=== PATIENT | female | born 1945 | race Caucasian/White ===

== ENCOUNTER 2024-11-21 06:16 | Day surgery (SDC) | payer OTHER, SELFPAY | END 2024-11-21 15:55 | disposition home or self-care (01) | LOC: GI 06:16 | PROVIDERS: ATTENDING PHYSICIAN Surgery | DX: C20 Malignant neoplasm of rectum (principal); K62.89 Other specified diseases of anus and rectum; K56.690 Other partial intestinal obstruction; D12.5 Benign neoplasm of sigmoid colon | CPT/HCPCS: 45330; J1610 ==

== ENCOUNTER → 2024-12-05 12:04 | Outpatient (REF) | payer OTHER, MEDICARE, SELFPAY | LOC: MRI 3T 12:04 | PROVIDERS: ATTENDING PHYSICIAN Surgery; FAMILY PHYSICIAN Family Medicine | DX: C20 Malignant neoplasm of rectum (principal) | CPT/HCPCS: 71260; 72197; A9575; Q9967 ==

== ENCOUNTER 2024-12-28 06:20 | Day surgery (SDC) | payer OTHER, SELFPAY ==
[2024-12-26 13:27] VITALS: BMI 21.9
--- NOTE | 2024-12-27 15:23 | PTCARENOTE ---
Abnormal ECG 12/26/24, reviewed by Dr Chiang, no additional intervention requested.
[2024-12-28 12:26] VITALS: BP 123/77; BMI 21.9
[2024-12-28] MEDS: NORMOSOL-R/PLASMALYTE-A 1000 IV (12:44)
[2024-12-28 14:30] VITALS: BP 92/55
[2024-12-28 14:46] VITALS: BP 104/60
[2024-12-28 15:00] VITALS: BP 81/68
[2024-12-28 15:01] VITALS: BP 117/66
== END 2024-12-28 16:00 | disposition home or self-care (01) ==
LOC: SDS 06:20
PROVIDERS: ATTENDING PHYSICIAN Surgery; FAMILY PHYSICIAN Family Medicine
DX: C20 Malignant neoplasm of rectum (principal)
CPT/HCPCS: 36561; 36415; 71045; 76000; 93005; C1788

== ENCOUNTER → 2025-04-09 09:40 | Outpatient (REF) | payer OTHER, SELFPAY | LOC: RAD 09:40 | PROVIDERS: ATTENDING PHYSICIAN Internal Medicine Hematology & Oncology; FAMILY PHYSICIAN Family Medicine | DX: C20 Malignant neoplasm of rectum (principal) | CPT/HCPCS: 71260; 74160; Q9967 ==

== ENCOUNTER → 2025-04-11 11:53 | Outpatient (REF) | payer OTHER, SELFPAY | LOC: MRI 3T 11:53 | PROVIDERS: ATTENDING PHYSICIAN Internal Medicine Hematology & Oncology; FAMILY PHYSICIAN Family Medicine | DX: C20 Malignant neoplasm of rectum (principal) | CPT/HCPCS: 72197; A9575 ==

== ENCOUNTER → 2025-05-07 10:28 | Outpatient (REF) | payer OTHER, SELFPAY | LOC: REG 10:28 | PROVIDERS: ATTENDING PHYSICIAN Internal Medicine Hematology & Oncology; FAMILY PHYSICIAN Family Medicine | DX: C20 Malignant neoplasm of rectum (principal) | CPT/HCPCS: 36415 ==

== ENCOUNTER 2025-05-15 06:16 | Day surgery (SDC) | payer OTHER, SELFPAY ==
--- NOTE | 2025-05-09 14:01 | CM ---
CM was updated by DARYA RN that patient would like to go to rehab post operatively. CM spoke with patient's son who stated that patient lives alone and would not be able to handle the ileostomy post operatively. CM explained placement process.
CM advised patient's son to research SNF's on Medicare. gov. CM advised further that CM taking care of patient will assist with placement options as well.
PLAN: SNF.
== END 2025-05-15 11:31 | disposition home or self-care (01) ==
LOC: GI 06:16
PROVIDERS: ATTENDING PHYSICIAN Surgery
DX: C20 Malignant neoplasm of rectum (principal); K62.89 Other specified diseases of anus and rectum; K56.690 Other partial intestinal obstruction; Z01.818 Encounter for other preprocedural examination
CPT/HCPCS: 45330

== ENCOUNTER 2025-05-16 05:43 | Inpatient (IN) | payer OTHER, SELFPAY ==
[2025-05-07 11:16] LABS: INR 1.02; PT 13.7 Sec (11.4-14.6)
[2025-05-07 11:17] LABS: APTT 28.1 Sec (23.4-35.0)
[2025-05-07 11:18] LABS: Hematocrit 35.6 % (37.0-47.0); Hemoglobin 11.4 g/dL (12.0-16.0); Mean Corp Hgb Conc. 32.0 g/dL (33.0-37.0); Mean Corpuscular Volume 100.3 fL (81.0-99.0); Nucleated Red Blood Cells % 0 %; Platelet Count 194 10^3/uL (130-400); Red Cell Dist. Width 17.2 % (11.5-14.5)
[2025-05-07 11:54] LABS: Glycohemoglobin (HgbA1c) 4.8 % (4.0-5.6)
[2025-05-07 12:05] LABS: ALT (SGPT) 70 U/L (0-35); AST (SGOT) 49 U/L (14-36); Albumin 4.3 g/dl (3.5-5.0); Alkaline Phosphatase 107 U/L (38-126); Blood Urea Nitrogen 10 mg/dl (7-17); Calcium 10.0 mg/dl (8.4-10.2); Carbon Dioxide 26 mmol/L (22-30); Chloride 111 mmol/L (98-107); Glucose 92 mg/dl (70-99); Potassium 4.6 mmol/L (3.5-5.1); Sodium 142 mmol/L (135-145); Total Protein 7.0 g/dl (6.3-8.2); eGFR > 60.00
[2025-05-16] VITALS (16 sets, daily range): BP systolic 1–147; BP diastolic 53–76; BMI 18.4
[2025-05-16] MEDS: NEURONTIN 600 MG PO (06:45)
[2025-05-16] MEDS: TYLENOL 1000 MG PO (06:45)
[2025-05-16] MEDS: NORMOSOL-R/PLASMALYTE-A 1000 IV ×2 (06:48→14:36)
--- NOTE | 2025-05-16 07:00 | PTCARENOTE ---
Mepilex dressing applied to the L forearm wound.
--- NOTE | 2025-05-16 12:46 | W.OR.REC1 ---
Addendum entered and electronically signed by Mandeep Severino MD 05/16/25 14:52:
Specimen #2 is distal anastomotic donut.
Addendum entered and electronically signed by Mandeep Severino MD 05/16/25 14:50:
Correction: ASA II, not III.
Addendum entered and electronically signed by Mandeep Severino MD 05/16/25 14:10:
Patient's son updated via VM.
Original Note:
Rectal Surgery Post Op Note
Immediate Post Op
Primary Surgeon: Brian Severino MD
Assisting Surgeon: Isa Anderson MD, DAVID Ponce
Urologist: Liseth Freitas MD
Pre-op Diagnosis: rectal cancer
Post-op Diagnosis: same
Procedure Performed: 1) robotic low-anterior resection (LAR) with loop ileostomy 2) flexible sigmoidoscopy
Anesthesia Type: general plus local
Specimen / Cultures: rectosigmoid
Estimated Blood Loss: 100 cc
Complications: no immediate
Operative Findings: 1) rectal tumor at 7-8 cm from anal verge/5 cm from anorectal ring with associated distal tattooing 2) no obvious metastatic disease 3) a bit oozey at end leading to giving 1 gram TXA with benefit
Camron drain in pelvis.
Arana, stents, ureteral ICG by Dr. Hernandez. R stent removed at end of case.
Will send to med surg.
Cancer Report
ASA Score: III
Case Status: Elective
Operation: Low anterior resection
Modailty: Robotic
Location of tumor within rectum: Middle
Height of lower edge of tumor from anal verge: 7-8 cm
Mobilization of splenic flexure: No
Level of ligation of inferior mesenteric artery: Superior rectal artery
Level of ligation of inferior mesenteric vein: High
Level of rectal transectiondistal to distal edge of tumor: 4 cm
Type of Reconstruction: Stapled end-end
Anastomotic testing method(s): Rectal air infusion under pelvic fluid (with flexible sigmoidoscopy) and Palpation
Creation of stoma: Ileostomy
En bloc resection: No
Metastectomy: No
Completeness of tumor resection: R0
Interoperative Complications: No
Blood transfusion: No
Total Mesorectal Excision photographed: in pathology
[2025-05-16] MEDS: DILAUDID 0.5 MG IV (13:23)
[2025-05-16 14:05] LABS: Hematocrit 30.8 % (37.0-47.0); Hemoglobin 10.0 g/dL (12.0-16.0); Mean Corp Hgb Conc. 32.5 g/dL (33.0-37.0); Mean Corpuscular Volume 102.7 fL (81.0-99.0); Nucleated Red Blood Cells % 0 %; Platelet Count 204 10^3/uL (130-400); Red Cell Dist. Width 15.9 % (11.5-14.5)
[2025-05-16] MEDS: TORADOL 10 MG IV ×2 (14:06→21:04)
[2025-05-16 14:08] LABS: Blood Urea Nitrogen 14 mg/dl (7-17); Calcium 7.7 mg/dl (8.4-10.2); Carbon Dioxide 22 mmol/L (22-30); Chloride 110 mmol/L (98-107); Estimated Creatinine Clearance 47 ml/min; Glucose 147 mg/dl (70-99); Magnesium 2.1 mg/dl (1.6-2.3); Potassium 3.4 mmol/L (3.5-5.1); Sodium 141 mmol/L (135-145); eGFR > 60.00
[2025-05-16] MEDS: KCL 270 MEQ IV (14:45)
[2025-05-16] MEDS: TYLENOL PO ×2 (15:53→21:00)
--- NOTE | 2025-05-16 16:00 | PTCARENOTE ---
pt admitted to 2S room 2108 @ 1515 from PACU via bed. admission database completed from medical record. pt is drowsy, responds to name, opens eyes and returns to sleep. O2 2L NC maintained. call rowe in reach, safe environment maintained, son at
bedside. assessment completed as documented. will observe.
--- NOTE | 2025-05-16 18:46 | PTCARENOTE ---
@1830, pt waking up, moving around in bed, confused to place and situation. pt re-oriented. bed alarm placed. monitoring continues.
[2025-05-16] MEDS: FLOMAX 0.4 MG PO (21:31)
--- NOTE | 2025-05-16 21:33 | PTCARENOTE ---
2119 pt woke up confused, stated I have to pee. Pt made aware of harrison catheter and ileostomy. Pt reoriented on situation. Pt went back to sleep after verbalizing understanding.
[2025-05-17] VITALS (7 sets, daily range): BP systolic 100–125; BP diastolic 57–66; PULSE 84; BMI 18.4
[2025-05-17] MEDS: TYLENOL PO ×5 (00:44→23:45)
[2025-05-17] MEDS: TORADOL 10 MG IV (01:02)
[2025-05-17] MEDS: NORMOSOL-R/PLASMALYTE-A 1000 IV ×2 (04:07→16:52)
[2025-05-17 05:02] LABS: Hematocrit 25.0 % (37.0-47.0); Hemoglobin 8.2 g/dL (12.0-16.0); Mean Corp Hgb Conc. 32.8 g/dL (33.0-37.0); Mean Corpuscular Volume 102.0 fL (81.0-99.0); Nucleated Red Blood Cells % 0 %; Platelet Count 160 10^3/uL (130-400); Red Cell Dist. Width 15.7 % (11.5-14.5)
[2025-05-17 05:26] LABS: Blood Urea Nitrogen 17 mg/dl (7-17); Calcium 8.0 mg/dl (8.4-10.2); Carbon Dioxide 24 mmol/L (22-30); Chloride 111 mmol/L (98-107); Estimated Creatinine Clearance 33 ml/min; Glucose 88 mg/dl (70-99); Magnesium 2.3 mg/dl (1.6-2.3); Potassium 4.3 mmol/L (3.5-5.1); Sodium 139 mmol/L (135-145); eGFR 56.60
[2025-05-17] MEDS: ARMOUR THYROID 30 MG PO (05:55)
[2025-05-17] MEDS: TYLENOL 650 MG PO ×3 (08:51→20:04)
[2025-05-17] MEDS: PROTONIX 40 MG PO (08:51)
[2025-05-17] MEDS: TORADOL IV (09:44)
--- NOTE | 2025-05-17 10:39 | CM ---
Addendum entered by Chandrika Crawley 05/17/25 15:38:
Therapy assessment recomendation is for SNF. Per patient family requests for referrals to [facility], [facility] and [facility]. Referrals sent via all scripts.
Addendum entered by Chandrika Crawley 05/17/25 10:46:
CM sent tt to physician requesting pt/ot assessment when medically appropriate
Original Note:
Patient seen at bedside on . Patient lives alone in an apartment with no steps to enter. Patient stated she has a walker, and a cane at home. Patient PCP is Dr. Harris and she uses the [facility]. Patient would like to go home but
understands that she will need rehab for a period of time. Patient waiting for therapy to clarify needed level of care. CM will review with her options for SNF referrals and supports for home if needed. CM will continue to follow for discharge
planning needs.
Plan;home with VN vs SNF; pending therapy assessment; SNF options
--- NOTE | 2025-05-17 11:00 | WOUNDNOTE ---
[place] RN note: Patient s/p ostomy surgery
See H&P for complete history.
PMH: Colon cancer.
Ostomy location and type: RUQ ileostomy, stoma pink and budded, bridge intact.
Instructed patient ostomy pouch emptying, had patient open and close clean pouch. Emptied patient's appliance with her observing. Plan to do teaching session with patient and Son or daughter in law next Tuesday or Tuesday. Family at bedside visiting
and made aware, will coordinate to see who can come in for appliance change. Confirmed with patient and family can send secure start box to patient's home. Patient Expressed that she is upset and not sure if she can handle this. Support and
encouragement given.
[place] wafer # [id number] [place] pouch # [id number] No leakage at this time.
Ostomy supplies ordered from [facility] and placed at bedside.
Note to case management: VN services recommended for ostomy teaching.
Nursing care plan updated, will follow as needed.
--- NOTE | 2025-05-17 12:28 | W.PN.CRS1 ---
Addendum entered and electronically signed by Mandeep Severino MD 05/17/25 14:01:
Of note, patient's BMI of 18.2 makes her underweight.
Addendum entered and electronically signed by Mandeep Severino MD 05/17/25 14:00:
Of note, drop in Hg is due to acute blood loss anemia coupled with hemodilution.
Original Note:
Today's Communication / Plan
-
Clears.
OOB.
Recheck Hg. Held Toradol.
Assessment/Plan
-
POD 1.
1. trial clears.
2. Hg drifted to 8.2. ?hemodilution. Will recheck at 1 pm. Hold Toradol for now.
3. OOB/PT/OT.
4. remaining stent removed. Continue harrison until tomorrow.
5. continue other measures.
Subjective Data
Procedure
Robotic LAR with ileostomy 05/16/25
Subjective Data
Date of Service: May 17, 2025
Pain control reasonable.
Thirsty.
Objective Data
-
Vital Signs
Temp Pulse Resp BP Pulse Ox
98.6 F 85 16 116/66 95
05/17/25 11:07 05/17/25 11:07 05/17/25 11:07 05/17/25 11:07 05/17/25 11:07
Intake & Output
05/16/25 05/17/25 05/18/25
06:59 06:59 06:59
Intake Total 1560 / 1560 692 / 692
Output Total 626 / 626
Balance 934 / 934 692 / 692
Intake:
Oral fluids 692 / 692
IV fluids (Total) 1560 / 1560
Normosal 600 / 600
Output:
Liquid stool amount /
Ileostomy /
Drain Output (Total)
Right Abdomen Elia-Palacios
Urine, Harrison 500 / 500
Lab Results
05/17/25 04:20
Physical Exam
-
General: No Acute Distress
Chest: Clear
Cardiovascular: Regular Rate & Rhythm
Abdomen: Non Distended, Tender (mild incisional) and Other (stoma viable with some bilious output; BETTE with some sanguinous output (low volume))
Extremities: No Edema
Incision: Clear, Dry, Intact and No Skin Erythema
[2025-05-17 13:10] LABS: Hematocrit 24.7 % (37.0-47.0)
--- NOTE | 2025-05-17 13:41 | PN.CDI ---
CDI
- -
CDI:
Physician Documentation Request
Admit Date: 05/16/25 05:43
Dear Doctor Maycol,
Please review the following and provide your response in the progress notes.
Clinical Indicators:
Outfitter Cabin, 05/17
#Initial assessment due to BMI 18.4.
#...states that she has gradually lost weight over time but was unable to provide details.
#Current BW: (05/16) 104 lbs 0.931 oz BMI: 18.4 (underweight).
#...Weight history (12/26/24) 115 lbs. This is a 9.6% BW loss over 5 months.
Based on the above and your clinical assessment, please provide an associated diagnosis related to the BMI:
BMI 18.4, underweight
Other (please specify)
BMI < or = to 19
Underweight
Weight Loss
Cachectic
Anorexia
Use of terms such as suspected, likely, concern for, or probable (associated with a specific diagnosis that is being evaluated, monitored, or treated as if it exists) are acceptable and can be coded in the inpatient setting, when documented at the
time of discharge.
Thank you,
Calista Archer RN BSN CCDS
CDI Specialist
Please contact via tiger text
Please use your independent medical judgment in providing your response.
--- NOTE | 2025-05-17 13:46 | PN.CDI ---
CDI
- -
CDI:
Physician Documentation Request
Admit Date: 05/16/25 05:43
Dear Doctor Maycol,
Please review the following and provide your response in the progress notes.
Clinical Indicators:
Immediate Post Op, 05/16
#Pre-op Diagnosis: rectal cancer
#Procedure Performed: 1) robotic low-anterior resection (LAR) with loop ileostomy
#...2) flexible sigmoidoscopy
#Specimen / Cultures: rectosigmoid
#Estimated Blood Loss: 100 cc
PN, 05/17
#POD 1.
#...2. Hg drifted to 8.2. ?hemodilution. Will recheck at 1 pm.
Laboratory Tests
05/07/25 05/16/25 05/17/25
10:58 13:46 04:20
Hgb 11.4 L 10.0 L 8.2 L
Based on the above and your clinical assessment, please clarify, the most likely condition/diagnosis evaluated, monitored and/or treated?
Acute blood loss anemia with baseline chronic anemia (Specify type)
Anemia of chronic disease - indicate if neoplastic disease, CKD or other
Chronic iron deficiency anemia due to blood loss
Other(please specify)
Use of terms such as suspected, likely, concern for, or probable (associated with a specific diagnosis that is being evaluated, monitored, or treated as if it exists) are acceptable and can be coded in the inpatient setting, when documented at the
time of discharge.
Thank you,
Calista Archer RN BSN CCDS
CDI Specialist
Please contact via tiger text
Please use your independent medical judgment in providing your response.
--- NOTE | 2025-05-17 13:51 | W.PN.UPDATE ---
Update Note
Progress Note Update
Hematocrit this afternoon 24.7 which is virtually the same as the earlier drawl result of 25.0. I do not suspect active bleeding. For now we will continue to hold the Toradol, however will order prophylactic dose subcu Lovenox for this evening.
Labs will be rechecked in the morning.
[2025-05-17] MEDS: LOVENOX 30 MG SC (18:32)
[2025-05-17] MEDS: FLOMAX 0.4 MG PO (21:07)
[2025-05-18] MEDS: TYLENOL 650 MG PO ×2 (03:57→08:40)
[2025-05-18] MEDS: ARMOUR THYROID 30 MG PO (05:23)
[2025-05-18 06:00] VITALS: BMI 19.5
[2025-05-18 06:17] LABS: Hematocrit 29.2 % (37.0-47.0); Hemoglobin 9.6 g/dL (12.0-16.0); Mean Corp Hgb Conc. 32.9 g/dL (33.0-37.0); Mean Corpuscular Volume 102.8 fL (81.0-99.0); Nucleated Red Blood Cells % 0 %; Platelet Count 207 10^3/uL (130-400); Red Cell Dist. Width 15.5 % (11.5-14.5)
[2025-05-18 06:35] LABS: Blood Urea Nitrogen 16 mg/dl (7-17); Calcium 8.3 mg/dl (8.4-10.2); Carbon Dioxide 26 mmol/L (22-30); Chloride 108 mmol/L (98-107); Estimated Creatinine Clearance 25 ml/min; Glucose 100 mg/dl (70-99); Potassium 4.2 mmol/L (3.5-5.1); Sodium 137 mmol/L (135-145); eGFR 41.31
[2025-05-18 07:05] VITALS: BP 124/79
[2025-05-18] MEDS: NSS 1000 IV ×3 (08:39→20:24)
[2025-05-18] MEDS: PROTONIX 40 MG PO (08:40)
[2025-05-18] MEDS: ZOFRAN 4 MG IV ×2 (10:44→16:48)
--- NOTE | 2025-05-18 11:36 | W.PN.CRS1 ---
Today's Communication / Plan
-
renal US
Fld
Assessment/Plan
-
79 yo female with a h/o rectal tumor now POD #2 Robotic low anterior resection (LAR) with loop ileostomy. Flexible sigmoidoscopy. Ureteroscopy for stent placements to identify ureters (stents now removed) (TXA given at end of case for oozing)
AFVSS
Harrison removed early this am for voiding trial
BETTE dislodged, removed at bedside, prior to removed body fluid cr sent and equal to serum
Stoma productive of stool/flatus
Acute blood loss anemia present from intraoperative losses and hemodilution. H/h remains stable. Do no suspect active bleeding.
Rise in Cr with HIEN noted
Plan:
Ok for FLD
Harrison removed early this am, follow closely for retention
Check renal/bladder US
Consult placed to nephrology
IVF as per nephrology
Analgesics/Antiemetics prn. No NSAIDS give rise in Cr with anemia
Lovenox and SCDs for VTE ppx
Subjective Data
Procedure
Robotic LAR with ileostomy 05/16/25
Subjective Data
Date of Service: May 18, 2025
Pt seen and examined at bedside with Dr. Severino. Denies n/v. OOB to chair. Tolerating clears. Pain well managed.
Objective Data
-
Vital Signs
Temp Pulse Resp BP Pulse Ox
98 F 91 14 124/79 95
05/18/25 07:05 05/18/25 07:05 05/18/25 07:05 05/18/25 07:05 05/18/25 07:05
Intake & Output
05/17/25 05/18/25 05/19/25
06:59 06:59 06:59
Intake Total 1560 / 1560 1812 / 1812
Output Total 626 / 626 1400 / 1400 430 / 430
Balance 934 / 934 412 / 412 -430 / -430
Intake:
Oral fluids 932 / 932
IV fluids (Total) 1560 / 1560 880 / 880
Normosal 600 / 600
Output:
Liquid stool amount 1025 / 1025 400 / 400
Ileostomy 1025 / 1025 400 / 400
Drain Output (Total)
Right Abdomen Elia-Palacios
Urine, Harrison 500 / 500 350 / 350
Lab Results
05/18/25 05:44
05/18/25 05:44
Physical Exam
-
General: No Acute Distress
Chest: Clear
Cardiovascular: Regular Rate & Rhythm
Abdomen: Non Distended, Tender (mild incisional) and Other (stoma viable with stool/flatus, silicone harrison utilized as bridge in place; BETTE with SS outputs, leaking and slightly dislodged (removed))
Extremities: No Edema
Incision: Clear, Dry, Intact and No Skin Erythema
[2025-05-18 12:07] VITALS: BP 141/69; PULSE 73; O2SAT 97
[2025-05-18] MEDS: TYLENOL PO ×2 (12:30→16:45)
--- NOTE | 2025-05-18 13:28 | W.CON.NEPH ---
Consultation
-
Date/Time Consultation Requested: 05/18/25 0811
Date/Time Consultation Performed: 05/18/25 1310
Requesting Provider: timo Hodge
Performing Provider: Sherice Griffith
Reason for Consultation: HIEN
Medical History
-
Chief Complaint: elective LAR with loop ileostomy
History of Present Illness:
79-year-old female with a history of hypothyroidism on [place] Thyroid, spinal stenosis, celiac disease, GERD, bipolar, depression, anxiety, MVP, hyperlipidemia, osteoporosis who was diagnosed with the rectal cancer several months ago and she
received neoadjuvant therapy for 3 months which help to shrink the tumor and now she electively admitted for lower anterior resection and loop ileostomy which she successfully underwent on 05/16/25. Her creatinine presurgery was 0.6, since the
surgery on the creatinine increased up to 1 yesterday and today at 1.3 hence nephrology asked to evaluate. Patient is having liquid stool output from ileostomy that negative balance of 1 L today. She reports of no nausea or vomiting. Has
been drinking well, her diet being advanced by surgery. She complains about mild dizziness. No chest pain or shortness of breath. Abdominal pain in fair control. She was getting Toradol for pain control which has been discontinued now. She
continued on IV fluid replacement. She offers no fever or coughing. No edema.
Past Medical History
Rectal cancer stage III
Hypothyroidism
Celiac disease
Osteoporosis
MVP
GERD
Anxiety/depression
Hyperlipidemia
Spelled stenosis
Past Surgical History: Other ( total abdominal hysterectomy, BSO. Cataract. Hip surgery in 2021, nose repair in 1982. Removal of thyroid in 1982)
Social History
Tobacco: Non-Smoker
Alcohol: None
Living: With Family
Family History
Family History: Not Pertinent
Allergies / Home Medications
Allergy/AdvReac Type Severity Reaction Status Date / Time
adhesive Allergy Mild Skin Tears Verified 05/16/25 06:34
gluten Allergy stomach Verified 05/16/25 06:34
issues
latex Allergy Unknown Verified 05/16/25 06:34
�Medication �Instructions �Recorded �Confirmed �Type
thyroid (pork) 30 mg tablet 30 mg PO DAILY Thyroid 12/27/24 05/16/25 History
([place] Thyroid)
metronidazole 500 mg tablet 500 mg PO . DIRECTED pre op 05/09/25 05/16/25 History
neomycin 500 mg tablet 1 g PO . DIRECTED pre op 05/09/25 05/16/25 History
sodium sul 1.479 gram-potas ch 0 tab PO . DIRECTED pre op 05/09/25 05/16/25 History
0.188 gram-magnes sul 0.225 gram
tablet (Sutab)
Review of Systems
-
All other systems: Negative unless noted
Physical Exam
Vital Signs
Vital Signs
Temp Pulse Resp BP Pulse Ox
98 F 91 14 124/79 95
05/18/25 07:05 05/18/25 07:05 05/18/25 07:05 05/18/25 07:05 05/18/25 07:05
Lab Results
WBC 9.0 10^3/uL (4.8-10.8) 05/18/25 05:44
RBC 2.84 10^6/uL (4.20-5.40) L 05/18/25 05:44
Hgb 9.6 g/dL (12.0-16.0) L 05/18/25 05:44
Hct 29.2 % (37.0-47.0) L 05/18/25 05:44
Plt Count 207 10^3/uL (130-400) D 05/18/25 05:44
Sodium 137 mmol/L (135-145) 05/18/25 05:44
Potassium 4.2 mmol/L (3.5-5.1) 05/18/25 05:44
Chloride 108 mmol/L (98-107) H 05/18/25 05:44
Carbon Dioxide 26 mmol/L (22-30) 05/18/25 05:44
BUN 16 mg/dl (7-17) 05/18/25 05:44
Creatinine 1.3 mg/dL (0.6-1.0) H 05/18/25 05:44
eGFR 41.31 05/18/25 05:44
Glucose 100 mg/dl (70-99) H 05/18/25 05:44
Calcium 8.3 mg/dl (8.4-10.2) L 05/18/25 05:44
Albumin 4.3 g/dl (3.5-5.0) 05/07/25 10:58
Physical Exam
General: Awake, Alert, Oriented, AOx3, No Distress and Nontoxic
HEENT: Anicteric, Conjunctivae Clear and Facial Symmetry
Respiratory: Clear, Normal Excursion and Nonlabored Respirations
Cardiac: S1/S2 and Regular Rate/Rhythm
Abdomen: Soft, Nondistended and Other (mild TTP post op, ileostomy looks clean, as bile color liquid on ostomy bag)
Musculoskeletal: No Cyanosis and No Edema
Skin: No Rash
Neuro: Nonfocal/Grossly Intact
Psych: Mood/afflect pleasant, Insight/judgement good and Appropriate
Data Reviewed
-
Labs: Labs Reviewed by me, Discussed with Patient and Discussed with Family
Assessment/Plan
-
IMP:
Robotic low anterior resection (LAR) with loop ileostomy 05/16
Rectal cancer stage III completed neoadjuvant therapy
HIEN-baseline creatinine 0.6
Right chest port
hypothyroidism
Anxiety, depression
Bipolar
Osteoporosis
plan:
A/w electively for rectal surg now pOD 2
HIEN-suspect prerenal with significant output from ileostomy and use of NSAIDs
Check baseline urine analysis, bladder scan now that she is off the Arana catheter
Avoid nephrotoxins, NSAIDs have discontinued
Will give her a bolus of 1 L normal saline and increase the rate to 1 25 cc per hour
Monitor urine output, check labs in the morning
Try to match IVF with her GI output
Blood pressures are stable without significant hypotension
Mild hypercalcemia, need abdomen for correction
Preoperative ultrasound noted-mild right renal collecting system dilation, right ureteral jets not seen
His creatinine continued to worse likely need to repeat imaging
Discussed with the patient and the son at bedside
Check labs in the morning
[2025-05-18 15:05] VITALS: BP 152/77
[2025-05-18 16:48] LABS: Albumin 2.8 g/dl (3.5-5.0)
--- NOTE | 2025-05-18 18:47 | PTCARENOTE ---
Patient had no urine output during the entire shift. Last bladder scan was 353 ml at 1820. Patient also c/o nausea at that time. Zofran given IV at 1645. Patient vomited about 30 ml of dark brown emesis. Dr. Severino made aware and will come to see
patient.
--- NOTE | 2025-05-18 19:14 | W.PN.UPDATE ---
Addendum entered and electronically signed by Mandeep Severino MD 05/18/25 19:36:
Updated the patient's son and next of kin, Alonso, via voicemail.
Original Note:
Update Note
Progress Note Update
Earlier in the day, received word from nursing that the patient has not been urinating since Arana removal. Also her creatinine bumped up a little bit this morning leading to nephrology consultation. Nephrology input noted and appreciated;
receiving bolus now. BETTE creatinine was consistent with serum at 1.3. Renal ultrasound results revealed mild dilatation of right renal collecting system and no right ureteral jet identified. Also, given the pelvic dissection with her operation,
she is at risk for urinary retention. I did correspond earlier with Dr. Jesus Manuel Rordigues of urology via phone who will see her in consultation in the a.m. He recommended holding off on Arana replacement at that point in time.
More recently, I received word from nursing that the patient had a bout of emesis of greenish-brown material and has been nauseated today. I did evaluate her at the bedside recently and she is mildly distended. Normal incisional tenderness.
Serosanguineous fluid from the prior drain site is noted. Stoma is viable with no gas but a bit of bilious output in the bag. She admitted to further nausea.
Given the above, I am concerned about possible postoperative ileus as well as dehydration. I discussed situation with the patient and with nursing. Will replace the Arana. Will have nursing place an NG and confirm placement with auscultation.
Will obtain abdominal plain films in the a.m.
[2025-05-18] MEDS: LOVENOX 30 MG SC (19:17)
[2025-05-18 19:55] LABS: Urine Character Clear (Clear)
[2025-05-18 20:06] LABS: Urine Red Blood Cell 0-2 /HPF (0-2); Urine White Cell 30-40 /HPF (0-5)
[2025-05-18] MEDS: OFIRMEV 100 IV (20:25)
[2025-05-18] MEDS: CHLORASEPTIC/SORE THROAT SPRAY 1 SPRAY PO (20:34)
[2025-05-18 23:00] VITALS: BP 153/81
[2025-05-19] MEDS: OFIRMEV 100 IV ×4 (01:23→19:43)
[2025-05-19] MEDS: NSS 1000 IV ×3 (04:44→19:46)
[2025-05-19 06:00] VITALS: BMI 20.1
[2025-05-19 06:17] LABS: Hematocrit 27.6 % (37.0-47.0); Hemoglobin 9.0 g/dL (12.0-16.0); Mean Corp Hgb Conc. 32.6 g/dL (33.0-37.0); Mean Corpuscular Volume 100.7 fL (81.0-99.0); Platelet Count 214 10^3/uL (130-400); Red Cell Dist. Width 15.2 % (11.5-14.5)
[2025-05-19 06:35] LABS: Blood Urea Nitrogen 21 mg/dl (7-17); Calcium 8.0 mg/dl (8.4-10.2); Carbon Dioxide 25 mmol/L (22-30); Chloride 113 mmol/L (98-107); Estimated Creatinine Clearance 32 ml/min; Glucose 103 mg/dl (70-99); Potassium 4.0 mmol/L (3.5-5.1); Sodium 138 mmol/L (135-145); eGFR 50.48
[2025-05-19 07:10] VITALS: BP 176/90
[2025-05-19] MEDS: NSS (PRESERVATIVE FREE) 10 ML IV (08:08)
[2025-05-19] MEDS: PROTONIX IV 40 MG IV (08:08)
[2025-05-19 08:24] VITALS: BP 144/82
--- NOTE | 2025-05-19 08:28 | W.PN.URO.CBU ---
Today's Communication / Plan
-
Trend creatinine
No surgical intervention needed at this time
Assessment / Plan
-
79F s/p LAR and ileostomy 05/16/25 with preop stents placed
Some HIEN after removal of stent and harrison
Renal US showing R renal fullness without ureteral jet
- Suspect patient's HIEN is mostly pre-renal
- Mild renal pelvis fullness is low suspicion for significant obstructive uropathy. Some possible ureteral spasm from the stent but likely to resolve on its own
- Creatinine improved 05/19 with better fluid balance and harrison draining light yellow urine
- Continue to trend creat daily
- Can remove harrison when HIEN resolved. No urinary retention on US
- F/U nephrology recommendations
Diagnosis
-
Date of Service: May 19, 2025
-
Patient Diagnosis:
HIEN
Post Op Day: s/p LAR with loop ileostomy, bilateral ureteral stents preop on 05/16/25
Subjective
-
No events
sore throat
No flank pain
Objective
-
Vital Signs
Temp Pulse Resp BP Pulse Ox
98.3 F 89 14 144/82 96
05/19/25 07:10 05/19/25 08:24 05/19/25 07:10 05/19/25 08:24 05/19/25 08:15
Intake and Output
05/18/25 05/19/25 05/20/25
06:59 06:59 06:59
Intake Total 1812 / 1812 4077 / 4077
Output Total 1400 / 1400 2595 / 2595
Balance 412 / 412 1482 / 1482
Intake:
Oral fluids 932 / 932 237 / 237
IV fluids (Total) 880 / 880 3750 / 3750
Amount instilled into GI Tube ( 90 / 90
Total)
[place] Sump
Output:
Liquid stool amount 5 / 1025 975 / 975
Ileostomy 1024 / 5 975 / 975
Drain Output (Total) 170 / 170
Right Abdomen Elia-Palacios 170 / 170
Gastrointestinal tube output ( 1099
Total)
[place] Sump 1099
Urine, Harrison 350 / 350
Urine, Voided 350 / 350
Laboratory Results
05/19/25 05:42
05/19/25 05:42
Physical Exam
-
General - well developed, well nourished, no acute distress
Chest - clear bilaterally
NGT in place, clear drainage
Abdomen - soft, non-tender, ileostomy
Harrison in place, clear urine
--- NOTE | 2025-05-19 11:32 | W.PN.CRS1 ---
Addendum entered and electronically signed by Mandeep Severino MD 05/19/25 12:57:
I saw and examined the patient.
The METAL MINE INSPECTOR's note was reviewed and I agree with the note.
Comment:
Seen earlier with METAL MINE INSPECTOR.
Minimal nausea. Pain control reasonable.
Afebrile with stable vital signs. WBC 7.2. Hemoglobin 9.0. BUN and creatinine 21 and 1.1.
NG tube with dark drainage/1.1 L in 24 hours. Urine output 350 cc overnight.
Abdomen moderately distended. Incisions look good. Stoma viable with bilious output.
Harrison in place.
Plain films this a.m. shows looping of the NG tube on itself in the esophagus as well as mild small bowel distention. This is consistent with partial small bowel obstruction versus postop ileus. NG tube adjusted and repeat films show tip of the
tube to be in the stomach now.
Continue NG tube and Harrison.
Watch urine output.
Appreciate help from consultants.
Son Alonso updated on the phone.
Original Note:
Today's Communication / Plan
-
npo/ngt/harrison
Assessment/Plan
-
79 yo female with a h/o rectal tumor now POD 3 Robotic low anterior resection (LAR) with loop ileostomy. Flexible sigmoidoscopy. Ureteroscopy for stent placements to identify ureters (stents now removed) (TXA given at end of case for oozing)
AFVSS
Unable to void with voiding trial on 05/18, harrison replaced for acute urinary retention. Low urine outputs (425ml over the last 24hours)
NGT placed last night for ongoing nausea, high outputs but does appeared coiled in the esophagus on XR
Obstruction series this am with mild sb dilatation likely secondary to ileus. Stoma without output overnight but now productive of liquid green stool/flatus
Acute blood loss anemia present from intraoperative losses and hemodilution. H/h remains stable. Do no suspect active bleeding.
HIEN present, likely prerenal. Appreciate nephrology following.
Renal US from 05/18 with mild right renal collecting system fullness/unable to visualize jet. Appreciate urology eval.
Plan:
NPO with ice chips
NGT repositioned at bedside, obtain XR to confirm placement
C/W harrison
Trend labs
IVF as per nephrology
Analgesics/Antiemetics prn. No NSAIDS give rise in Cr with anemia
Lovenox and SCDs for VTE ppx
Subjective Data
Procedure
Robotic LAR with ileostomy 05/16/25
Subjective Data
Date of Service: May 19, 2025
Pt seen and examined at bedside with Dr Severino. Some nausea persists. Pain managed well at this point. Feeling quite tired.
Objective Data
-
Vital Signs
Temp Pulse Resp BP Pulse Ox
98.3 F 89 14 144/82 96
05/19/25 07:10 05/19/25 08:24 05/19/25 07:10 05/19/25 08:24 05/19/25 08:15
Intake & Output
05/18/25 05/19/25 05/20/25
06:59 06:59 06:59
Intake Total 1812 / 1812 4077 / 4077 130 / 130
Output Total 1400 / 1400 2595 / 2595 75 / 75
Balance 412 / 412 1482 / 1482 55 / 55
Intake:
Oral fluids 932 / 932 237 / 237
IV fluids (Total) 880 / 880 3750 / 3750
IV piggybacks 100 / 100
Amount instilled into GI Tube ( 90 / 30 / 30
Total)
[place] Sump 90 / 90 30 / 30
Output:
Liquid stool amount 1025 / 1025 975 / 975
Ileostomy 1025 / 1025 975 / 975
Drain Output (Total) 170 / 170
Right Abdomen Elia-Palacios 170 / 170
Gastrointestinal tube output ( 1099
Total)
[place] Sump 1099 / 1099
Urine, Harrison 350 / 350 75 / 75
Urine, Voided 350 / 350
Lab Results
05/19/25 05:42
05/19/25 05:42
Physical Exam
-
General: No Acute Distress
Chest: Clear
Cardiovascular: Regular Rate & Rhythm
Abdomen: Soft, Distended (mild), Tender (mild incisional) and Other (stoma viable with green stool/flatus, silicone harrison utilized as bridge in place. NGT with bilious outputs. Harrison with low clear, yellow outputs)
Extremities: No Edema
Incision: Clear, Dry, Intact and No Skin Erythema
--- NOTE | 2025-05-19 12:16 | W.PN.NEPH.PH ---
Today's Communication / Plan
-
cont IVF to match GI out put
Assessment/Plan
-
IMP:
Robotic low anterior resection (LAR) with loop ileostomy 05/16
Rectal cancer stage III completed neoadjuvant therapy
HIEN-baseline creatinine 0.6
Right chest port
hypothyroidism
Anxiety, depression
Bipolar
Osteoporosis
plan:
A/w electively for rectal surg now pOD 3
HIEN-suspect prerenal with significant output from ileostomy and use of NSAIDs
UA 4+bld normal CK, pyuria. Fena low 0.2
oliguric with harrison(reinserted today)
Postoperative ultrasound noted-mild right renal collecting system dilation, right ureteral jets not seen
saw pt and with improving cr no interventions planned, drain fluid cr also 1.3 so likely no leak
Try to match IVF with her GI output
Blood pressures are stable without hypotension
Mild hypercalcemia, corrected for alb is normal
pt is NPO for ileus vs PSBO with NGT
Discussed with the patient and nursing
Check labs in the morning
-
-
Date of Service: May 19, 2025
CC / HPI / ROS
-
Chief Complaint:
HIEN
History of Present Illness:
cr down to 1.1
Bp stable, oliguric, harrison placed today
drain removed, NGT draining
ostomy liquid bile
Review of Systems:
no cp or sob
no abd pain
Labs
-
Labs:
WBC 7.2 10^3/uL (4.8-10.8) 05/19/25 05:42
RBC 2.74 10^6/uL (4.20-5.40) L 05/19/25 05:42
Hgb 9.0 g/dL (12.0-16.0) L 05/19/25 05:42
Hct 27.6 % (37.0-47.0) L 05/19/25 05:42
Plt Count 214 10^3/uL (130-400) 05/19/25 05:42
Sodium 138 mmol/L (135-145) 05/19/25 05:42
Potassium 4.0 mmol/L (3.5-5.1) 05/19/25 05:42
Chloride 113 mmol/L (98-107) H 05/19/25 05:42
Carbon Dioxide 25 mmol/L (22-30) 05/19/25 05:42
BUN 21 mg/dl (7-17) H 05/19/25 05:42
Creatinine 1.1 mg/dL (0.6-1.0) H 05/19/25 05:42
eGFR 50.48 05/19/25 05:42
Glucose 103 mg/dl (70-99) H 05/19/25 05:42
Calcium 8.0 mg/dl (8.4-10.2) L 05/19/25 05:42
Albumin 2.8 g/dl (3.5-5.0) L 05/18/25 05:44
Physical Exam
-
Vital Signs:
Vital Signs
Temp Pulse Resp BP Pulse Ox
98.3 F 89 14 144/82 96
05/19/25 07:10 05/19/25 08:24 05/19/25 07:10 05/19/25 08:24 05/19/25 08:15
Cardiovascular:: Regular rate and rhythm
Respiratory:: Bilateral: CTA
Lung Excursion:: Normal
Abdomen:: Nontender and Soft (ileostomy noted )
Extremity Edema:: None: Bilateral:
Harrison Catheter: Yes
[2025-05-19 15:00] VITALS: BP 129/71
[2025-05-19 15:17] VITALS: BP 129/71
[2025-05-19] MEDS: LEVOTHROID 30 MCG IV (17:26)
[2025-05-19] MEDS: LOVENOX 30 MG SC (17:28)
[2025-05-19 23:15] VITALS: BP 128/77
[2025-05-20] VITALS (7 sets, daily range): BP systolic 136–165; BP diastolic 72–86; PULSE 86; BMI 20.1
[2025-05-20] MEDS: OFIRMEV 100 IV ×3 (02:02→14:31)
[2025-05-20 05:32] LABS: Hematocrit 23.2 % (37.0-47.0); Hemoglobin 7.4 g/dL (12.0-16.0); Mean Corp Hgb Conc. 31.9 g/dL (33.0-37.0); Mean Corpuscular Volume 102.7 fL (81.0-99.0); Platelet Count 163 10^3/uL (130-400); Red Cell Dist. Width 14.6 % (11.5-14.5)
[2025-05-20 05:51] LABS: Blood Urea Nitrogen 15 mg/dl (7-17); Calcium 8.0 mg/dl (8.4-10.2); Carbon Dioxide 19 mmol/L (22-30); Chloride 117 mmol/L (98-107); Estimated Creatinine Clearance 36 ml/min; Glucose 76 mg/dl (70-99); Potassium 3.7 mmol/L (3.5-5.1); Sodium 138 mmol/L (135-145); eGFR 56.60
[2025-05-20] MEDS: NSS 1000 IV ×2 (06:00→21:31)
[2025-05-20 06:35] LABS: Hematocrit 23.7 % (37.0-47.0); Hemoglobin 7.6 g/dL (12.0-16.0); Mean Corp Hgb Conc. 32.1 g/dL (33.0-37.0); Mean Corpuscular Volume 102.6 fL (81.0-99.0); Platelet Count 161 10^3/uL (130-400); Red Cell Dist. Width 14.7 % (11.5-14.5)
--- NOTE | 2025-05-20 07:51 | W.PN.URO.CBU ---
Today's Communication / Plan
-
Continued improvement in HIEN
No intervention needed
Can remove harrison per primary team when appropriate
Assessment / Plan
-
79F s/p LAR and ileostomy 05/16/25 with preop stents placed
Some HIEN after removal of stent and harrison
Renal US showing R renal fullness without ureteral jet
- Suspect patient's HIEN is mostly pre-renal
- Mild renal pelvis fullness is low suspicion for significant obstructive uropathy. Some possible ureteral spasm from the stent but likely to resolve on its own
- Creatinine improved 05/19 and 05/20 with better fluid balance and harrison draining light yellow urine
- Can remove harrison per primary team when appropriate. No urinary retention on US
Diagnosis
-
Date of Service: May 20, 2025
-
Patient Diagnosis:
HIEN
Post Op Day: s/p LAR with loop ileostomy, bilateral ureteral stents preop on 05/16/25
Subjective
-
No flank pain
Objective
-
Vital Signs
Temp Pulse Resp BP Pulse Ox
97.7 F 88 16 128/77 97
05/19/25 23:15 05/19/25 23:15 05/19/25 23:15 05/19/25 23:15 05/19/25 23:15
Intake and Output
05/19/25 05/20/25 05/21/25
06:59 06:59 06:59
Intake Total 4077 / 4077 3550 / 3550
Output Total 2595 / 2595 2160 / 2160 150 / 150
Balance 1482 / 1482 1390 / 1390 -150 / -150
Intake:
Oral fluids 237 / 237
IV fluids (Total) 3750 / 3750 2940 / 2940
IV piggybacks 400 / 400
Amount instilled into GI Tube ( 90 / 210 /
Total)
[place] Sump 210 /
Output:
Liquid stool amount 975 / 975 1100 / 1100 150 / 150
Ileostomy 97 / 5 1099 / 1099 150 / 150
Drain Output (Total) 170 / 170
Right Abdomen Elia-Palacios 170 / 170
Gastrointestinal tube output ( 1099 410 / 410
Total)
[place] Sump 1099 410 / 410
Urine, Harrison 650 / 650
Urine, Voided 350 / 350
Laboratory Results
05/20/25 06:27
05/20/25 05:05
Physical Exam
-
General - well developed, well nourished, no acute distress
Chest - clear
Harrison clear urine
[2025-05-20] MEDS: NSS (PRESERVATIVE FREE) 10 ML IV (08:35)
[2025-05-20] MEDS: PROTONIX IV 40 MG IV (08:35)
[2025-05-20] MEDS: CHLORASEPTIC/SORE THROAT SPRAY 2 SPRAY PO (08:39)
--- NOTE | 2025-05-20 10:42 | W.PN.NEPH.PH ---
Today's Communication / Plan
-
IV fluids continue
Assessment/Plan
-
IMP:
Robotic low anterior resection (LAR) with loop ileostomy 05/16
Rectal cancer stage III completed neoadjuvant therapy
HIEN-baseline creatinine 0.6
Right chest port
hypothyroidism
Anxiety, depression
Bipolar
Osteoporosis
plan:
A/w electively for rectal surg status post ureteral stent interop
HIEN-suspect prerenal with significant output from ileostomy and use of NSAIDs
Postoperative ultrasound noted-mild right renal collecting system dilation= no further intervention per GI
pt is NPO for ileus vs PSBO with NGT
Creatinine improving with IV fluids.
Continue fluids for now
-
-
Date of Service: May 20, 2025
CC / HPI / ROS
-
Chief Complaint:
HIEN
History of Present Illness:
cr down to 1.1
Bp stable, oliguric,
drain removed, NGT draining
ostomy liquid bile
Review of Systems:
no cp or sob
no abd pain
Labs
-
Labs:
WBC 5.2 10^3/uL (4.8-10.8) 05/20/25 06:27
RBC 2.31 10^6/uL (4.20-5.40) L 05/20/25 06:27
Hgb 7.6 g/dL (12.0-16.0) L 05/20/25 06:27
Hct 23.7 % (37.0-47.0) L 05/20/25 06:27
Plt Count 161 10^3/uL (130-400) 05/20/25 06:27
Sodium 138 mmol/L (135-145) 05/20/25 05:05
Potassium 3.7 mmol/L (3.5-5.1) 05/20/25 05:05
Chloride 117 mmol/L (98-107) H 05/20/25 05:05
Carbon Dioxide 19 mmol/L (22-30) L 05/20/25 05:05
BUN 15 mg/dl (7-17) 05/20/25 05:05
Creatinine 1.0 mg/dL (0.6-1.0) 05/20/25 05:05
eGFR 56.60 05/20/25 05:05
Glucose 76 mg/dl (70-99) 05/20/25 05:05
Calcium 8.0 mg/dl (8.4-10.2) L 05/20/25 05:05
Albumin 2.8 g/dl (3.5-5.0) L 05/18/25 05:44
Physical Exam
-
Vital Signs:
Vital Signs
Temp Pulse Resp BP Pulse Ox
97.9 F 95 16 136/83 97
05/20/25 07:05 05/20/25 07:05 05/20/25 07:05 05/20/25 07:05 05/20/25 08:30
Cardiovascular:: Regular rate and rhythm
Respiratory:: Bilateral: CTA
Lung Excursion:: Normal
Abdomen:: Nontender and Soft (ileostomy noted )
Extremity Edema:: None: Bilateral:
[place] Catheter: Yes
--- NOTE | 2025-05-20 10:55 | W.PN.CRS1 ---
Today's Communication / Plan
-
maintain ngt and harrison
1 unit prbcs
Assessment/Plan
-
79 yo female with a h/o rectal tumor now POD 4 Robotic low anterior resection (LAR) with loop ileostomy. Flexible sigmoidoscopy. Ureteroscopy for stent placements to identify ureters (stents now removed) (TXA given at end of case for oozing)
AFVSS
Unable to void with voiding trial on 05/18, harrison replaced for acute urinary retention. Low urine outputs (425ml over the last 24hours)
NGT placed last night for ongoing nausea, high outputs but does appeared coiled in the esophagus on XR
Obstruction series this am with mild sb dilatation likely secondary to ileus. Stoma without output overnight but now productive of liquid green stool/flatus
Acute blood loss anemia present from intraoperative losses and hemodilution. H/h remains stable. Do no suspect active bleeding.
HIEN present, likely prerenal. Appreciate nephrology following.
Renal US from 05/18 with mild right renal collecting system fullness/unable to visualize jet. Appreciate urology eval.
Plan:
-NPO with ice chips
-Maintain NGT another day
-C/W harrison for at least one more day. Per urology, okay to remove when able.
-Trend labs
-IVF @120ml/hr as per nephrology
-Analgesics/Antiemetics prn. No NSAIDS give rise in Cr with anemia
-Lovenox and SCDs for VTE ppx
-Hgb 7.6. Likely due to dilutional anemia. Will transfuse 1 unit PRBCs.
Subjective Data
Procedure
Robotic LAR with ileostomy 05/16/25
Subjective Data
Date of Service: May 20, 2025
Patient states she has no pain. She does not appreciate the NGT. Otherwise, she has no complaints.
Objective Data
-
Vital Signs
Temp Pulse Resp BP Pulse Ox
97.9 F 95 16 136/83 97
05/20/25 07:05 05/20/25 07:05 05/20/25 07:05 05/20/25 07:05 05/20/25 08:30
Intake & Output
05/19/25 05/20/25 05/21/25
06:59 06:59 06:59
Intake Total 4077 / 4077 3550 / 3550 130 / 130
Output Total 2595 / 2595 2160 / 2160 150 / 150
Balance 1482 / 1482 1390 / 1390 -20 / -20
Intake:
Oral fluids 237 / 237
IV fluids (Total) 3750 / 3750 2940 / 2940
IV piggybacks 400 / 400 100 / 100
Amount instilled into GI Tube ( 90 / 90 210 / 210 30 / 30
Total)
[place] Sump 90 / 90 210 / 210 30 / 30
Output:
Liquid stool amount 975 / 975 1100 / 1100 150 / 150
Ileostomy 975 / 975 1100 / 1100 150 / 150
Drain Output (Total) 170 / 170
Right Abdomen Elia-Palacios 170 / 170
Gastrointestinal tube output ( 1100 / 1100 410 / 410
Total)
[place] Sump 1100 / 1100 410 / 410
Urine, Harrison 650 / 650
Urine, Voided 350 / 350
Lab Results
05/20/25 06:27
05/20/25 05:05
Physical Exam
-
General: No Acute Distress and AOx3
Abdomen: Soft, Non Distended and Non Tender
Skin: Warm and Dry
--- NOTE | 2025-05-20 11:14 | CM ---
CM following re: discharge planning.
Reviewed pt's chart, met with pt.
Pt is POD 4 Robotic low anterior resection (LAR) with loop ileostomy, continue supportive care.
Pt is aware that [facility] denied a referral and [facility] and [facility] offered a bed based on bed availability on the day of discharge. Pt stated she does not have preference at this time and either [facility] SNF or [facility] whoever has a bed at discharge.
D/C plan: preferred [facility] SNF or [facility] based on bed availability on the day of discharge.
CM will follow to assist pt with discharge to a preferred SNF.
--- NOTE | 2025-05-20 15:20 | WOUNDNOTE ---
[facility] RN NOTE: Patient visited for ostomy teaching. Son, Aquilino present during teaching. Ostomy pouch changed yesterday by SHARON Johnson and was clean and intact. No leaking noted. Reviewed emptying pouch with patient. Patient watched this database report writer empty pouch.
Patient practiced opening and closing clean pouch. Aquilino cut a barrier and asked many appropriate questions. Plan is for patient to empty pouch when at home and Aquilino will visit to change pouch 2x week. Patient has been OOB to chair and stated she
ambulated with walker prior to surgery. Instructed patient to change position when in bed. Patient did not want to be turned for sacral assessment as she was visiting with son. Per SHARON Johnson sacral foam is intact. Heels are blanchable and intact and
heels area off-loaded with air cushion under calves. Air cushion in chair. Ostomy supplies at beside. Plan is for SNF then home. Will continue to follow for ostomy teaching.
[2025-05-20] MEDS: LEVOTHROID 30 MCG IV (18:36)
[2025-05-20] MEDS: LOVENOX 30 MG SC (18:37)
[2025-05-20] MEDS: FLUSH (NSS) 1 FLUSH IV (18:37)
[2025-05-20] MEDS: NSS IV (21:32)
[2025-05-21] MEDS: NSS 1000 IV (04:13)
[2025-05-21 05:01] LABS: Hematocrit 28.0 % (37.0-47.0); Hemoglobin 9.2 g/dL (12.0-16.0); Mean Corp Hgb Conc. 32.9 g/dL (33.0-37.0); Mean Corpuscular Volume 95.6 fL (81.0-99.0); Nucleated Red Blood Cells % 0 %; Platelet Count 182 10^3/uL (130-400); Red Cell Dist. Width 19.4 % (11.5-14.5)
[2025-05-21 05:42] LABS: Blood Urea Nitrogen 8 mg/dl (7-17); Calcium 8.3 mg/dl (8.4-10.2); Carbon Dioxide 12 mmol/L (22-30); Chloride 116 mmol/L (98-107); Estimated Creatinine Clearance 60 ml/min; Glucose 57 mg/dl (70-99); Potassium 4.1 mmol/L (3.5-5.1); Sodium 138 mmol/L (135-145); eGFR > 60.00
[2025-05-21 06:00] VITALS: BMI 20.7
[2025-05-21 06:27] LABS: Glucose - Point of Care 73 mg/dl (70-99)
--- NOTE | 2025-05-21 06:28 | GLUCOSE ---
SITUATION: lab notified of low bood sugar , notified ADMINISTRATIVE EXECUTIVE
BACKGROUND: pt is NPO with R NGT and NSS infusing at 120ml/hr
ASSESSMENT:pt asymptomatic ,post 15min BS 73 pt continues asymptomatic
RECOMMENDATION: GlucaGen IM ordered and hypoglycemic protocol implemented
[2025-05-21 07:10] VITALS: BP 140/73
[2025-05-21] MEDS: NSS (PRESERVATIVE FREE) 10 ML IV (07:20)
[2025-05-21] MEDS: PROTONIX IV 40 MG IV (07:20)
[2025-05-21 09:34] LABS: Glucose - Point of Care 60 mg/dl (70-99)
--- NOTE | 2025-05-21 09:45 | WOUNDNOTE ---
[facility] RN NOTE: Assessed patient's sacrum and buttock for reported DTI, patient currently sitting in chair. Patient able to stand with use of walker, buttocks with chronic discoloration not DTI. Patient states she can turn self in bed, is on an [employer]
bed. Pressure ulcer prevention measures reviewed with patient, states she understands. Air chair cushion placed on chair, asked nurse Laine to add air overlay to bed, if patient not turning self. Calazime applied to buttocks as requested by patient
and silicone foam re used. Patient has NGT in use, ileostomy stoma pink with bridge intact, no leakage. Updated nurse on the above and will follow as needed.
[2025-05-21 09:58] LABS: Glucose - Point of Care 45 mg/dl (70-99)
[2025-05-21] MEDS: DEXTROSE 50% SYRINGE 12.5 GRAMS IV (10:01)
[2025-05-21 10:26] LABS: Glucose - Point of Care 145 mg/dl (70-99)
--- NOTE | 2025-05-21 10:52 | W.PN.NEPH.PH ---
Today's Communication / Plan
-
IV fluids changed to include sodium bicarb and glucose
Creatinine at baseline
Follow BMP
Assessment/Plan
-
IMP:
Robotic low anterior resection (LAR) with loop ileostomy 05/16
Rectal cancer stage III completed neoadjuvant therapy
HIEN-baseline creatinine 0.6
Right chest port
hypothyroidism
Anxiety, depression
Bipolar
Osteoporosis
plan:
A/w electively for rectal surg status post ureteral stent interop
HIEN-suspect prerenal with significant output from ileostomy and use of NSAIDs
Postoperative ultrasound noted-mild right renal collecting system dilation= no further intervention per GI
pt is NPO for ileus vs PSBO with NGT
Creatinine improving with IV fluids now at baseline 0.5. , Grossly non oliguric
Will change IV fluids to include sodium bicarbonate and glucose for evolving metabolic acidosis and hypoglycemia while patient is n.p.o.
-
-
Date of Service: May 21, 2025
CC / HPI / ROS
-
Chief Complaint:
HIEN
History of Present Illness:
cr down to 0.5
Hemodynamically stable
drain removed, NGT back to drain given nausea
ostomy liquid bile
Evolving metabolic acidosis
Review of Systems:
no cp or sob
Nausea
NG tube
Hypoglycemia
harrison
Labs
-
Labs:
WBC 7.0 10^3/uL (4.8-10.8) 05/21/25 04:40
RBC 2.93 10^6/uL (4.20-5.40) L 05/21/25 04:40
Hgb 9.2 g/dL (12.0-16.0) L D 05/21/25 04:40
Hct 28.0 % (37.0-47.0) L 05/21/25 04:40
Plt Count 182 10^3/uL (130-400) 05/21/25 04:40
Sodium 138 mmol/L (135-145) 05/21/25 04:40
Potassium 4.1 mmol/L (3.5-5.1) 05/21/25 04:40
Chloride 116 mmol/L (98-107) H 05/21/25 04:40
Carbon Dioxide 12 mmol/L (22-30) L* 05/21/25 04:40
BUN 8 mg/dl (7-17) 05/21/25 04:40
Creatinine 0.5 mg/dL (0.6-1.0) L 05/21/25 04:40
eGFR > 60.00 05/21/25 04:40
Glucose 57 mg/dl (70-99) L 05/21/25 04:40
Calcium 8.3 mg/dl (8.4-10.2) L 05/21/25 04:40
Albumin 2.8 g/dl (3.5-5.0) L 05/18/25 05:44
Physical Exam
-
Vital Signs:
Vital Signs
Temp Pulse Resp BP Pulse Ox
97.5 F 91 16 140/73 96
05/21/25 07:10 05/21/25 07:10 05/21/25 07:10 05/21/25 07:10 05/21/25 07:10
Cardiovascular:: Regular rate and rhythm
Respiratory:: Bilateral: Coarse
Lung Excursion:: Normal
Abdomen:: Distended
Bowel Sounds:: Decreased
Extremity Edema:: +1: Bilateral:
Harrison Catheter: Yes
Other Findings::
NGT
[2025-05-21] MEDS: NSS IV (11:15)
[2025-05-21] MEDS: SODIUM BICARBONATE 1150 MEQ IV ×2 (11:40→22:59)
--- NOTE | 2025-05-21 13:38 | W.PN.CRS1 ---
Today's Communication / Plan
-
abdominal xray AM
failed clamping trial
Assessment/Plan
-
79 yo female with a h/o rectal tumor now POD 5 Robotic low anterior resection (LAR) with loop ileostomy. Flexible sigmoidoscopy. Ureteroscopy for stent placements to identify ureters (stents now removed) (TXA given at end of case for oozing)
AFVSS
Unable to void with voiding trial on 05/18, harrison replaced for acute urinary retention. Low urine outputs (425ml over the last 24hours)
NGT placed last night for ongoing nausea, high outputs but does appeared coiled in the esophagus on XR
Obstruction series this am with mild sb dilatation likely secondary to ileus. Stoma without output overnight but now productive of liquid green stool/flatus
Acute blood loss anemia present from intraoperative losses and hemodilution. H/h remains stable. Do no suspect active bleeding.
HIEN present, likely prerenal. Appreciate nephrology following.
Renal US from 05/18 with mild right renal collecting system fullness/unable to visualize jet. Appreciate urology eval.
Plan:
-NGT clamping trial done this morning and failed due to nausea
-Abdominal xrays for AM
-C/W harrison for at least one more day. Per urology, okay to remove when able.
-Bicarbonate low, nephrology switched IVFs to bicarb
-Trend labs
-Analgesics/Antiemetics prn. No NSAIDS give rise in Cr with anemia
-Lovenox and SCDs for VTE ppx
-Hgb 9.2, improved after 1 unit prbcs.
-Stoma nuria in place, will plan on removing in the office as an outpatient
-Stoma RN for teaching
-OOB as tolerated with PT
Subjective Data
Procedure
Robotic LAR with ileostomy 05/16/25
Subjective Data
Date of Service: May 21, 2025
Patient states she is not in that much pain. She was nauseous earlier which resolved. Having some liquid stool and flatus in her ostomy.
Objective Data
-
Vital Signs
Temp Pulse Resp BP Pulse Ox
97.5 F 91 16 140/73 96
05/21/25 07:10 05/21/25 07:10 05/21/25 07:10 05/21/25 07:10 05/21/25 07:10
Intake & Output
05/20/25 05/21/25 05/22/25
06:59 06:59 06:59
Intake Total 3550 / 3550 3520 / 3520
Output Total 2160 / 2160 2200 / 2200
Balance 1390 / 1390 1320 / 1320
Intake:
Oral fluids 450 / 450
IV fluids (Total) 2940 / 2940 2470 / 2470
IV piggybacks 400 / 400 200 / 200
Amount instilled into GI Tube ( 210 / 210 150 / 150
Total)
[place] Sump 210 / 210 150 / 150
Blood Product Amount Infused ( 250 / 250
mL)
Packed Rbc Leukoreduced Unit 250 / 250
[id number]
Output:
Liquid stool amount 1100 / 1100 400 / 400
Ileostomy 1100 / 1100 400 / 400
Gastrointestinal tube output ( 410 / 410 150 / 150
Total)
[place] Sump 410 / 410 150 / 150
Urine, Harrison 650 / 650 1650 / 1650
Lab Results
05/21/25 04:40
05/21/25 04:40
Physical Exam
-
General: No Acute Distress and AOx3
Abdomen: Soft, Non Distended, Non Tender and Other (colostomy warm and pink with output)
--- NOTE | 2025-05-21 14:27 | CM ---
CM following re: discharge planning.
Reviewed pt's chart, met with pt.
Pt is POD 5 Robotic low anterior resection (LAR) with loop ileostomy, continue supportive care.
[facility] home and [facility] offered a bed based on bed availability on the day of discharge. Pt stated she does not have preference at this time and either [facility] [place] [facility] or [facility] whoever has a bed at discharge.
D/C plan: preferred [facility] or [facility] based on bed availability on the day of discharge.
CM will follow to assist pt with discharge to a preferred SNF.
[2025-05-21 15:10] VITALS: BP 147/77
[2025-05-21] MEDS: LOVENOX 30 MG SC (17:00)
[2025-05-21] MEDS: LEVOTHROID 30 MCG IV (17:01)
[2025-05-21] MEDS: DILAUDID 0.5 MG IV (17:02)
[2025-05-21 23:00] VITALS: BP 154/81
[2025-05-22 05:09] LABS: Hematocrit 26.1 % (37.0-47.0); Hemoglobin 8.9 g/dL (12.0-16.0); Mean Corp Hgb Conc. 34.1 g/dL (33.0-37.0); Mean Corpuscular Volume 90.9 fL (81.0-99.0); Nucleated Red Blood Cells % 0 %; Platelet Count 191 10^3/uL (130-400); Red Cell Dist. Width 17.8 % (11.5-14.5)
[2025-05-22 05:33] LABS: Blood Urea Nitrogen 3 mg/dl (7-17); Calcium 8.0 mg/dl (8.4-10.2); Carbon Dioxide 25 mmol/L (22-30); Chloride 107 mmol/L (98-107); Estimated Creatinine Clearance 61 ml/min; Glucose 111 mg/dl (70-99); Potassium 2.9 mmol/L (3.5-5.1); Sodium 135 mmol/L (135-145); eGFR > 60.00
[2025-05-22 06:00] VITALS: BMI 20.4
[2025-05-22 07:00] VITALS: BP 137/77
--- NOTE | 2025-05-22 10:00 | W.PN.CRS1 ---
Today's Communication / Plan
-
ngt clamping trial
d/c harrison
Assessment/Plan
-
79 yo female with a h/o rectal tumor now POD 6 Robotic low anterior resection (LAR) with loop ileostomy. Flexible sigmoidoscopy. Ureteroscopy for stent placements to identify ureters (stents now removed) (TXA given at end of case for oozing)
AFVSS
WBC: 5.9, Hgb 8.9
05/22- xray shows resolving ileus
Plan:
-NGT clamping trial again today
-Discontinue harrison
-IV bicarbonate per neprhology
-Trend labs
-Analgesics/Antiemetics prn. No NSAIDS give rise in Cr with anemia
-Lovenox and SCDs for VTE ppx
-Stoma nuria in place, will plan on removing in the office as an outpatient
-Stoma RN for teaching
-OOB as tolerated with PT
Subjective Data
Procedure
Robotic LAR with ileostomy 05/16/25
Subjective Data
Date of Service: May 22, 2025
Patient states she feels well today. She denies any pain. She is having bowel movements and flatus in her colostomy bag. The NG tube is bothering her but otherwise she has no complaints.
Objective Data
-
Vital Signs
Temp Pulse Resp BP Pulse Ox
98.2 F 73 17 137/77 97
05/22/25 07:00 05/22/25 07:00 05/22/25 07:00 05/22/25 07:00 05/22/25 07:00
Intake & Output
05/21/25 05/22/25 05/23/25
06:59 06:59 06:59
Intake Total 3520 / 3520 1260 / 1260
Output Total 2200 / 2200 2215 / 2215
Balance 1320 / 1320 -955 / -955
Intake:
Oral fluids 450 / 450
IV fluids (Total) 2470 / 2470 1200 / 1200
IV piggybacks 200 / 200
Amount instilled into GI Tube ( 150 / 150 60 / 60
Total)
[place] Sump 150 / 150 60 / 60
Blood Product Amount Infused ( 250 / 250
mL)
Packed Rbc Leukoreduced Unit 250 / 250
[id number]
Output:
Liquid stool amount 400 / 400 325 / 325
Ileostomy 400 / 400 325 / 325
Gastrointestinal tube output ( 150 / 150 240 / 240
Total)
[place] Sump 150 / 150 240 / 240
Urine, [place] 1650 / 1650 1650 / 1650
Lab Results
05/22/25 04:29
05/22/25 04:29
Physical Exam
-
General: No Acute Distress and AOx3
Abdomen: Soft, Non Distended, Non Tender and Other ( ileostomy warm and pink with function)
Skin: Warm and Dry
Incision: Clear, Dry, Intact
[2025-05-22] MEDS: KCL 270 MEQ IV (10:04)
[2025-05-22] MEDS: NSS (PRESERVATIVE FREE) 10 ML IV (10:05)
[2025-05-22] MEDS: PROTONIX IV 40 MG IV (10:05)
--- NOTE | 2025-05-22 11:53 | CM ---
CM following re: discharge planning.
Reviewed pt's chart, met with pt.
Pt is POD 6 Robotic low anterior resection (LAR) with loop ileostomy, NGT clamping trial again today, d/c Arana, continue supportive care.
[facility] offered a bed based on bed availability on the day of discharge. Pt stated she does not have preference at this time and either [facility] or [facility] whoever has a bed at discharge.
D/C plan: preferred [facility] or [facility] based on bed availability on the day of discharge.
CM will follow to assist pt with discharge to a preferred SNF.
--- NOTE | 2025-05-22 12:23 | W.PN.NEPH.PH ---
Today's Communication / Plan
-
decrease IVF rate
labs later today after kcl
Assessment/Plan
-
IMP:
Robotic low anterior resection (LAR) with loop ileostomy 05/16
Rectal cancer stage III completed neoadjuvant therapy
HIEN-baseline creatinine 0.6
Right chest port
hypothyroidism
Anxiety, depression
Bipolar
Osteoporosis
plan:
A/w electively for rectal surg status post ureteral stent interop
HIEN-suspect prerenal with significant output from ileostomy and use of NSAIDs
cr now at baseline, VT today
NGT clamping, abb Xray improving ileus
hypoglycemia better with D5 fluids
met acidosis improved too
replace k and recheck later today
she clinically seem mild gen edema-decrease IVF rate
Postoperative ultrasound noted-mild right renal collecting system dilation= no further intervention per GI
d/w nursing and pt
-
-
Date of Service: May 22, 2025
CC / HPI / ROS
-
Chief Complaint:
HIEN
History of Present Illness:
cr stable at 0.5
Hemodynamically stable
NGT clamping today
ostomy liquid bile
improved metabolic acidosis
k low 2.9, BG stabilized
Review of Systems:
no cp or sob
VT today off harrison this am
Labs
-
Labs:
WBC 5.9 10^3/uL (4.8-10.8) 05/22/25 04:29
RBC 2.87 10^6/uL (4.20-5.40) L 05/22/25 04:29
Hgb 8.9 g/dL (12.0-16.0) L 05/22/25 04:29
Hct 26.1 % (37.0-47.0) L 05/22/25 04:29
Plt Count 191 10^3/uL (130-400) 05/22/25 04:29
Sodium 135 mmol/L (135-145) 05/22/25 04:29
Potassium 2.9 mmol/L (3.5-5.1) L D 05/22/25 04:29
Chloride 107 mmol/L (98-107) 05/22/25 04:29
Carbon Dioxide 25 mmol/L (22-30) 05/22/25 04:29
BUN 3 mg/dl (7-17) L 05/22/25 04:29
Creatinine 0.5 mg/dL (0.6-1.0) L 05/22/25 04:29
eGFR > 60.00 05/22/25 04:29
Glucose 111 mg/dl (70-99) H 05/22/25 04:29
Calcium 8.0 mg/dl (8.4-10.2) L 05/22/25 04:29
Albumin 2.8 g/dl (3.5-5.0) L 05/18/25 05:44
Physical Exam
-
Vital Signs:
Vital Signs
Temp Pulse Resp BP Pulse Ox
98.2 F 73 17 137/77 97
05/22/25 07:00 05/22/25 07:00 05/22/25 07:00 05/22/25 07:00 05/22/25 07:00
Cardiovascular:: Regular rate and rhythm
Respiratory:: Bilateral: Coarse
Lung Excursion:: Normal
Abdomen:: Distended, Nontender and Soft
Extremity Edema:: +1: Bilateral:
Harrison Catheter: No
Other Findings::
NGT
mild gen edema
[2025-05-22 12:55] VITALS: BP 126/81; BP 154/93; PULSE 86; O2SAT 96
[2025-05-22] MEDS: SODIUM BICARBONATE 1150 MEQ IV (13:38)
--- NOTE | 2025-05-22 13:46 | PTCARENOTE ---
Pt's NGT tubed was clamped at 0830 this morning. Pt denies nausea. Residual was 10mls colorless clear fluid. NGT removed as per orders w/o difficulty.
[2025-05-22 15:00] VITALS: BP 133/90
[2025-05-22 16:38] LABS: Blood Urea Nitrogen < 2 mg/dl (7-17); Calcium 8.4 mg/dl (8.4-10.2); Carbon Dioxide 30 mmol/L (22-30); Chloride 105 mmol/L (98-107); Estimated Creatinine Clearance 61 ml/min; Glucose 113 mg/dl (70-99); Potassium 3.4 mmol/L (3.5-5.1); Sodium 135 mmol/L (135-145); eGFR > 60.00
[2025-05-22] MEDS: LOVENOX 30 MG SC (18:41)
[2025-05-22] MEDS: LEVOTHROID 30 MCG IV (18:42)
[2025-05-22] MEDS: D5/0.9% SODIUM CHLORIDE 1000 IV (18:44)
[2025-05-22 23:00] VITALS: BP 135/85
[2025-05-23] MEDS: DILAUDID 0.25 MG IV (01:09)
[2025-05-23 05:22] LABS: Hematocrit 26.3 % (37.0-47.0); Hemoglobin 8.8 g/dL (12.0-16.0); Mean Corp Hgb Conc. 33.5 g/dL (33.0-37.0); Mean Corpuscular Volume 92.6 fL (81.0-99.0); Nucleated Red Blood Cells % 0 %; Platelet Count 176 10^3/uL (130-400); Red Cell Dist. Width 17.6 % (11.5-14.5)
[2025-05-23 05:42] LABS: Blood Urea Nitrogen < 2 mg/dl (7-17); Calcium 7.9 mg/dl (8.4-10.2); Carbon Dioxide 28 mmol/L (22-30); Chloride 107 mmol/L (98-107); Estimated Creatinine Clearance 61 ml/min; Glucose 107 mg/dl (70-99); Potassium 3.1 mmol/L (3.5-5.1); Sodium 137 mmol/L (135-145); eGFR > 60.00
[2025-05-23 06:00] VITALS: BMI 20.1
[2025-05-23] MEDS: KCL 270 MEQ IV (06:12)
[2025-05-23 07:40] VITALS: BP 155/82
--- NOTE | 2025-05-23 07:46 | W.PN.CRS1 ---
Today's Communication / Plan
-
clears
post void residual
Assessment/Plan
-
79 yo female with a h/o rectal tumor now POD #7 Robotic low anterior resection (LAR) with loop ileostomy. Flexible sigmoidoscopy. Ureteroscopy for stent placements to identify ureters (stents now removed) (TXA given at end of case for oozing)
AFVSS
WBC: 4.4 (5.9), Hgb 8.8 (8.9)
05/22- xray shows resolving ileus, NGT clamp trial - removed
Plan:
-Advance diet to clears
-Voiding post harrison removal- will order post void residual
-IVs per nephrology
-Trend labs
-Analgesics/Antiemetics prn. No NSAIDS give rise in Cr with anemia
-Lovenox and SCDs for VTE ppx
-Stoma nuria in place, will plan on removing in the office as an outpatient
-Stoma RN for teaching
-OOB as tolerated with PT
-Hypokalemia - potassium repleted this AM
Subjective Data
Procedure
Robotic LAR with ileostomy 05/16/25
Subjective Data
Date of Service: May 23, 2025
Patient states she is having some urine dribbling causing her feels a burning sensation around her vagina. Denies nause aor vomiting. Denies pain otherwise. NGT came out yesterday. She is thirsty.
Objective Data
-
Vital Signs
Temp Pulse Resp BP Pulse Ox
98.6 F 80 16 135/85 95
05/22/25 23:00 05/22/25 23:00 05/22/25 23:00 05/22/25 23:00 05/22/25 23:00
Intake & Output
05/22/25 05/23/25 05/24/25
06:59 06:59 06:59
Intake Total 1260 / 1260 390 / 390
Output Total 2215 / 2215 1825 / 1825
Balance -955 / -955 -1435 / -1435
Intake:
Oral fluids 120 / 120
IV fluids (Total) 1200 / 1200
IV piggybacks 270 / 270
Amount instilled into GI Tube ( 60 / 60
Total)
[place] Sump 60 / 60
Output:
Liquid stool amount 325 / 325 625 / 625
Ileostomy 325 / 325 625 / 625
Gastrointestinal tube output ( 240 / 240 500 / 500
Total)
[place] Sump 240 / 240 500 / 500
Urine, Harrison 1650 / 1650 700 / 700
Other:
Number of approximated SMALL 1
amounts of urine
Number of approximated MODERATE 1
amounts of urine
How many times incontinent 1
SMALL amount urine
How many times incontinent 4
MODERATE amount urine
Lab Results
05/23/25 04:54
05/23/25 04:54
Physical Exam
-
General: No Acute Distress and AOx3
Abdomen: Soft, Non Distended, Non Tender and Other (ileostomy warm and pink with liquid stool)
Skin: Warm and Dry
Incision: Clear, Dry, Intact
[2025-05-23] MEDS: NSS (PRESERVATIVE FREE) 10 ML IV (09:42)
[2025-05-23] MEDS: PROTONIX IV 40 MG IV (09:42)
[2025-05-23] MEDS: D5/0.9% SODIUM CHLORIDE 1000 IV (09:46)
--- NOTE | 2025-05-23 10:20 | W.PN.NEPH.PH ---
Today's Communication / Plan
-
attempt wean IVF as po intake improves
Assessment/Plan
-
IMP:
Robotic low anterior resection (LAR) with loop ileostomy 05/16
Rectal cancer stage III completed neoadjuvant therapy
HIEN-baseline creatinine 0.6
Right chest port
hypothyroidism
Anxiety, depression
Bipolar
Osteoporosis
plan:
A/w electively for rectal surg status post ureteral stent insert and removal interop
HIEN-suspect prerenal with significant output from ileostomy and use of NSAIDs
cr now at baseline, follow bladder scan-PVR
on clear liquid diet
hypoglycemia stable with D5 fluids
likely wean IVF as po intake is good
met acidosis improved too
replace k
edema improving slowly
d/w nursing and pt
-
-
Date of Service: May 23, 2025
CC / HPI / ROS
-
Chief Complaint:
HIEN
History of Present Illness:
cr stable at 0.5
Hemodynamically stable
NGT out and tolerating liquid
ostomy 450cc out put
k low 3.1, BG stabilized on D5
Review of Systems:
no cp or sob
improving abd symp
no n/v
Labs
-
Labs:
WBC 4.4 10^3/uL (4.8-10.8) L 05/23/25 04:54
RBC 2.84 10^6/uL (4.20-5.40) L 05/23/25 04:54
Hgb 8.8 g/dL (12.0-16.0) L 05/23/25 04:54
Hct 26.3 % (37.0-47.0) L 05/23/25 04:54
Plt Count 176 10^3/uL (130-400) 05/23/25 04:54
Sodium 137 mmol/L (135-145) 05/23/25 04:54
Potassium 3.1 mmol/L (3.5-5.1) L 05/23/25 04:54
Chloride 107 mmol/L (98-107) 05/23/25 04:54
Carbon Dioxide 28 mmol/L (22-30) 05/23/25 04:54
BUN < 2 mg/dl (7-17) L 05/23/25 04:54
Creatinine 0.5 mg/dL (0.6-1.0) L 05/23/25 04:54
eGFR > 60.00 05/23/25 04:54
Glucose 107 mg/dl (70-99) H 05/23/25 04:54
Calcium 7.9 mg/dl (8.4-10.2) L 05/23/25 04:54
Albumin 2.8 g/dl (3.5-5.0) L 05/18/25 05:44
Physical Exam
-
Vital Signs:
Vital Signs
Temp Pulse Resp BP Pulse Ox
98.5 F 78 16 155/82 97
05/23/25 07:40 05/23/25 07:40 05/23/25 07:40 05/23/25 07:40 05/23/25 07:40
Cardiovascular:: Regular rate and rhythm
Respiratory:: Bilateral: CTA
Lung Excursion:: Normal
Extremity Edema:: +1: Bilateral:
Arana Catheter: No
Other Findings::
improving mild gen edema
--- NOTE | 2025-05-23 11:23 | CM ---
Addendum entered by Oli Timmons 05/23/25 15:41:
CM spoke to pt's son Alonso, updated on pt's discharge plan progress. pt's son is aware of SNF choices and he expressed his agreement and appreciation with discharge plan progress.
Original Note:
CM following re: discharge planning.
Reviewed pt's chart, met with pt.
Pt is POD 7 Robotic low anterior resection (LAR) with loop ileostomy, NGT removed yesterday, continue supportive care.
[facility] and [facility] offered a bed based on bed availability on the day of discharge. Pt stated she does not have preference at this time and either [facility] or [facility] whoever has a bed at discharge.
Updated clinical faxed to [facility] and [facility] for review.
D/C plan: preferred [facility] or [facility] based on bed availability on the day of discharge.
CM will follow to assist pt with discharge to a preferred SNF.
[2025-05-23 15:05] VITALS: BP 143/89
--- NOTE | 2025-05-23 15:40 | WOUNDNOTE ---
[facility] RN note: Instructed patient and son Aquilino pouch emptying and changing using Ruben wafer # [id number] and [place] pouch # [id number]. Peristomal skin intact. Stoma bridge intact. Ostomy supplies in room. Patient was already given ileotomy teaching
folder at stoma marking outpatient visit. R buttocks with dry slightly abraded skin, no ulcer. Sacral shaped silicone border foam maintained. L heel slow to milvia red. Instructed patient heel elevation while in bed and frequent turning and
repositioning. Instructed patient to take air chair cushion and ostomy supplies in room when discharged. Patient move self in bed. She was sitting on the side of her bed at end of visit. Next appliance change due Tuesday.
--- NOTE | 2025-05-23 16:18 | PTCARENOTE ---
Patient OOB with assist x1 and walker. Patient ambulated [address] with a steady gait. Patient has no c/o pain. Patient tolerated sitting in chair for 2 hours. Tolerating clear liquid diet. RN instructed patient on how to empty ileostomy,
patient demonstrated emptying ileostomy. patient was set up with a wash basin and patient gave herself a partial bath and brushed teeth.
--- NOTE | 2025-05-23 17:00 | PTCARENOTE ---
12F harrison replaced due to urinary retention.
[2025-05-23] MEDS: LOVENOX 30 MG SC (17:55)
[2025-05-23] MEDS: LEVOTHROID 30 MCG IV (17:55)
[2025-05-23 23:00] VITALS: BP 152/82
[2025-05-24] MEDS: D5/0.9% SODIUM CHLORIDE 1000 IV (01:56)
[2025-05-24 06:00] VITALS: BMI 19.8
[2025-05-24 07:02] VITALS: BP 143/87
[2025-05-24 07:17] LABS: Hematocrit 30.7 % (37.0-47.0); Hemoglobin 10.0 g/dL (12.0-16.0); Mean Corp Hgb Conc. 32.6 g/dL (33.0-37.0); Mean Corpuscular Volume 94.5 fL (81.0-99.0); Nucleated Red Blood Cells % 0 %; Platelet Count 223 10^3/uL (130-400); Red Cell Dist. Width 17.4 % (11.5-14.5)
[2025-05-24 07:24] LABS: Blood Urea Nitrogen < 2 mg/dl (7-17); Calcium 8.6 mg/dl (8.4-10.2); Carbon Dioxide 26 mmol/L (22-30); Chloride 112 mmol/L (98-107); Estimated Creatinine Clearance 59 ml/min; Glucose 99 mg/dl (70-99); Potassium 3.9 mmol/L (3.5-5.1); Sodium 140 mmol/L (135-145); eGFR > 60.00
[2025-05-24] MEDS: NSS (PRESERVATIVE FREE) 10 ML IV (07:27)
[2025-05-24] MEDS: PROTONIX IV 40 MG IV (07:28)
--- NOTE | 2025-05-24 09:13 | W.PN.URO.CBU ---
Today's Communication / Plan
-
- Post op urinary retention likely to resolve as she continues healing from pelvic surgery
- Maintain harrison at discharge
- Repeat trial of void in 1 week at rehab or in our office
- If repeat TOVs fail may need further outpt workup with urodynamics to r/o neurogenic bladder
Assessment / Plan
-
79F s/p LAR and ileostomy 05/16/25 with preop stents placed
Some HIEN after removal of stent and harrison, since resolved
Now with post op urinary retention s/p failed trial of void with 600cc 05/23/25
- Post op urinary retention likely to resolve as she continues healing from pelvic surgery
- Maintain harrison at discharge
- Repeat trial of void in 1 week at rehab or in our office
- If repeat TOVs fail may need further outpt workup with urodynamics to r/o neurogenic bladder
Diagnosis
-
Date of Service: May 24, 2025
-
Patient Diagnosis:
HIEN
Urinary retention
Post Op Day: s/p LAR with loop ileostomy, bilateral ureteral stents preop on 05/16/25
Subjective
-
Failed TOV yesterday
Objective
-
Vital Signs
Temp Pulse Resp BP Pulse Ox
98.5 F 89 17 143/87 97
05/24/25 07:02 05/24/25 07:02 05/24/25 07:02 05/24/25 07:02 05/24/25 07:02
Intake and Output
05/23/25 05/24/25 05/25/25
06:59 06:59 06:59
Intake Total 390 / 390 1440 / 1440 420 / 420
Output Total 1825 / 1825 4115 / 4115 20 / 20
Balance -1435 / -1435 -2675 / -2675 400 / 400
Intake:
Oral fluids 120 / 120 780 / 780 420 / 420
IV fluids (Total) 660 / 660
IV piggybacks 270 / 270
Output:
Liquid stool amount 625 / 625 1265 / 1265 20 / 20
Ileostomy 625 / 625 1265 / 1265 20 / 20
Gastrointestinal tube output ( 500 / 500
Total)
[place] Sump 500 / 500
Urine, Harrison 700 / 700 2250 / 2250
Straight cath output 600 / 600
Other:
Number of approximated SMALL 1
amounts of urine
Number of approximated MODERATE 1 1
amounts of urine
How many times incontinent 1
SMALL amount urine
How many times incontinent 4
MODERATE amount urine
How many times incontinent 2
SATURATED amount urine
Laboratory Results
05/24/25 06:39
05/24/25 06:39
Physical Exam
-
General - well developed, well nourished, no acute distress
Chest - clear
Abdomen - soft, non-tender
Harrison in place, clear urine
--- NOTE | 2025-05-24 11:34 | CM ---
CM following re: discharge planning.
Reviewed pt's chart, met with pt.
Pt is POD 8 Robotic low anterior resection (LAR) with loop ileostomy, NGT removed yesterday, continue supportive care.
[facility] offered a bed based on bed availability on the day of discharge. Pt stated she does not have preference at this time and either [facility] or [facility] whoever has a bed at discharge.
Updated clinical faxed to [facility] for review.
D/C plan: preferred [facility] or [facility] based on bed availability on the day of discharge.
CM will follow to assist pt with discharge to a preferred SNF.
--- NOTE | 2025-05-24 12:39 | W.PN.CRS1 ---
Today's Communication / Plan
-
Full liquids.
Assessment/Plan
-
POD 8.
1. Patient with stoma function and tolerating clears. Advanced to full's.
2. Blood work looks good. Creatinine normalized. IV fluids per nephrology.
3. Urinary retention. 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 I communicated with Dr. Rodrigues of urology. He recommended keeping the Arana in for now with likely follow-up with urology as an outpatient for another voiding
trial.
4. Continue PT/OT/mobilization. Anticipate discharge to SNF early next week.
Subjective Data
Procedure
Robotic LAR with ileostomy 05/16/25
Subjective Data
Date of Service: May 24, 2025
Seen in AM.
Denied significant discomfort.
NG tube was removed yesterday and has been tolerating clears.
Failed voiding trial yesterday and Arana is back in.
Objective Data
-
Vital Signs
Temp Pulse Resp BP Pulse Ox
98.5 F 89 17 143/87 97
05/24/25 07:02 05/24/25 07:02 05/24/25 07:02 05/24/25 07:02 05/24/25 07:02
Intake & Output
05/23/25 05/24/25 05/25/25
06:59 06:59 06:59
Intake Total 390 / 390 1440 / 1440 420 / 420
Output Total 1825 / 1825 4115 / 4115
Balance -1435 / -1435 -2675 / -2675 400 / 400
Intake:
Oral fluids 120 / 120 780 / 780 420 / 420
IV fluids (Total) 660 / 660
IV piggybacks 270 / 270
Output:
Liquid stool amount 625 / 625 1265 / 1265 20 / 20
Ileostomy 625 / 625 1265 / 1265
Gastrointestinal tube output ( 500 / 500
Total)
[place] Sump 500 / 500
Urine, Arana 700 / 700 2250 / 2250
Straight cath output 600 / 600
Other:
Number of approximated SMALL 1
amounts of urine
Number of approximated MODERATE 1 1
amounts of urine
How many times incontinent 1
SMALL amount urine
How many times incontinent 4
MODERATE amount urine
How many times incontinent 2
SATURATED amount urine
Lab Results
05/24/25 06:39
05/24/25 06:39
Physical Exam
-
General: No Acute Distress
Chest: Clear
Cardiovascular: Regular Rate & Rhythm
Abdomen: Soft, Non Distended, Tender (Mild incisional.) and Other (Stoma viable with output.)
Incision: Clear, Dry, Intact and No Skin Erythema
--- NOTE | 2025-05-24 13:33 | W.PN.NEPH.PH ---
Today's Communication / Plan
-
DC IV fluids after current bag completed
We will sign off
Assessment/Plan
-
IMP:
Robotic low anterior resection (LAR) with loop ileostomy 05/16
Rectal cancer stage III completed neoadjuvant therapy
HIEN-baseline creatinine 0.6
Right chest port
hypothyroidism
Anxiety, depression
Bipolar
Osteoporosis
plan:
A/w electively for rectal surg status post ureteral stent insert and removal interop
HIEN-suspect prerenal with significant output from ileostomy and use of NSAIDs
creatinine now at baseline, follow bladder scan-PVR
on clear liquid diet
hypoglycemia stable with D5 fluids
Can DC fluids after current bag completed
We will sign off
met acidosis improved too
replace k
edema improving slowly
d/w nursing and pt
-
-
Date of Service: May 24, 2025
CC / HPI / ROS
-
Chief Complaint:
HIEN
History of Present Illness:
cr stable at 0.5
Hemodynamically stable
NGT out and tolerating liquid diet
k low 3.9, BG stabilized on D5
Review of Systems:
no cp or sob
improving abd symp
no n/v
Labs
-
Labs:
WBC 4.6 10^3/uL (4.8-10.8) L 05/24/25 06:39
RBC 3.25 10^6/uL (4.20-5.40) L 05/24/25 06:39
Hgb 10.0 g/dL (12.0-16.0) L 05/24/25 06:39
Hct 30.7 % (37.0-47.0) L 05/24/25 06:39
Plt Count 223 10^3/uL (130-400) D 05/24/25 06:39
Sodium 140 mmol/L (135-145) 05/24/25 06:39
Potassium 3.9 mmol/L (3.5-5.1) D 05/24/25 06:39
Chloride 112 mmol/L (98-107) H 05/24/25 06:39
Carbon Dioxide 26 mmol/L (22-30) 05/24/25 06:39
BUN < 2 mg/dl (7-17) L 05/24/25 06:39
Creatinine 0.5 mg/dL (0.6-1.0) L 05/24/25 06:39
eGFR > 60.00 05/24/25 06:39
Glucose 99 mg/dl (70-99) 05/24/25 06:39
Calcium 8.6 mg/dl (8.4-10.2) 05/24/25 06:39
Albumin 2.8 g/dl (3.5-5.0) L 05/18/25 05:44
Physical Exam
-
Vital Signs:
Vital Signs
Temp Pulse Resp BP Pulse Ox
98.5 F 89 17 143/87 97
05/24/25 07:02 05/24/25 07:02 05/24/25 07:02 05/24/25 07:02 05/24/25 07:02
Cardiovascular:: Regular rate and rhythm
Respiratory:: Bilateral: CTA
Lung Excursion:: Normal
Extremity Edema:: +1: Bilateral:
Arana Catheter: No
Other Findings::
improving mild gen edema
[2025-05-24 14:52] VITALS: BP 145/78
[2025-05-24 14:55] VITALS: BP 145/78; PULSE 95
[2025-05-24] MEDS: LEVOTHROID 30 MCG IV (17:13)
[2025-05-24] MEDS: LOVENOX 30 MG SC (17:13)
[2025-05-24 23:48] VITALS: BP 143/82
[2025-05-25 07:05] VITALS: BP 131/98
[2025-05-25 07:06] VITALS: BMI 19.2
[2025-05-25 08:43] LABS: Hematocrit 30.8 % (37.0-47.0); Hemoglobin 10.1 g/dL (12.0-16.0); Mean Corp Hgb Conc. 32.8 g/dL (33.0-37.0); Mean Corpuscular Volume 94.8 fL (81.0-99.0); Platelet Count 207 10^3/uL (130-400); Red Cell Dist. Width 17.2 % (11.5-14.5)
[2025-05-25 09:29] LABS: Blood Urea Nitrogen < 2 mg/dl (7-17); Calcium 8.7 mg/dl (8.4-10.2); Carbon Dioxide 27 mmol/L (22-30); Chloride 110 mmol/L (98-107); Estimated Creatinine Clearance 57 ml/min; Glucose 106 mg/dl (70-99); Potassium 3.9 mmol/L (3.5-5.1); Sodium 139 mmol/L (135-145); eGFR > 60.00
[2025-05-25] MEDS: NSS (PRESERVATIVE FREE) 10 ML IV (10:36)
[2025-05-25] MEDS: PROTONIX IV 40 MG IV (10:36)
[2025-05-25] MEDS: FLUSH (NSS) 1 FLUSH IV ×2 (10:38→18:33)
--- NOTE | 2025-05-25 14:08 | W.PN.GS2 ---
Addendum entered and electronically signed by Fer Kwon MD 05/26/25 12:57:
I saw and examined the patient.
The Brass Buffer's note was reviewed and I agree with the note.
Original Note:
Today's Communication / Plan
-
Low residue diet
Assessment / Plan
-
79 yo female with a h/o rectal tumor now POD #9 Robotic low anterior resection (LAR) with loop ileostomy. Flexible sigmoidoscopy. Ureteroscopy for stent placements to identify ureters (stents now removed)
AFVSS
Tolerating dietary advancements with flatus/stool from appliance
Harrison for urinary retention, urology following with plan for TOV in one week
HIEN resolved, nephrology appreciated, signed off today
Plan:
Advance to LRD
Follow off IVF
Pt/Ot/Cm following with rehab/snf planned upon discharge
Analgesics scheduled and prn
Stoma care/teaching
VTE ppx with lovenox/scds
Subjective Data
-
Date of Service: May 25, 2025
Pt seen and examined at bedside with Dr. Kwon. Denies n/v. Some belching but drinking sodas. Denies pain but some tenderness persists.
Objective Data
-
Intake and Output
05/24/25 05/25/25 05/26/25
06:59 06:59 06:59
Intake Total 1440 / 1440 1680 / 1680 400 / 400
Output Total 4115 / 4115 995 / 995 1550 / 1550
Balance -2675 / -2675 685 / 685 -1150 / -1150
Intake:
Oral fluids 780 / 780 1080 / 1080 400 / 400
IV fluids (Total) 660 / 660 600 / 600
Output:
Liquid stool amount 1265 / 1265 445 / 445 750 / 750
Ileostomy 1265 / 1265 445 / 445 750 / 750
Urine, Harrison 2250 / 2250 550 / 550 800 / 800
Straight cath output 600 / 600
Other:
Number of approximated MODERATE 1
amounts of urine
How many times incontinent 2
SATURATED amount urine
Vital Signs
Temp Pulse Resp BP Pulse Ox
97.7 F 83 14 131/98 97
05/25/25 07:05 05/25/25 07:05 05/25/25 07:05 05/25/25 07:05 05/25/25 07:05
Lab Results
05/25/25 08:21
05/25/25 08:21
Calcium 8.7 mg/dl (8.4-10.2) 05/25/25 08:21
Magnesium 2.3 mg/dl (1.6-2.3) 05/17/25 04:20
Total Bilirubin 0.5 mg/dl (0.2-1.3) 05/07/25 10:58
AST 49 U/L (14-36) H 05/07/25 10:58
ALT 70 U/L (0-35) H 05/07/25 10:58
Alkaline Phosphatase 107 U/L (38-126) 05/07/25 10:58
Total Protein 7.0 g/dl (6.3-8.2) 05/07/25 10:58
Albumin 2.8 g/dl (3.5-5.0) L 05/18/25 05:44
Physical Exam
-
NAD
ABD soft, incisional tenderness, ND
Ileostomy to right abdomen productive of stool/flatus, latex free harrison as bridge
Patient has a harrison catheter: Yes
[2025-05-25 15:55] VITALS: BP 135/73
[2025-05-25] MEDS: LEVOTHROID 30 MCG IV (18:31)
[2025-05-25] MEDS: LOVENOX 30 MG SC (18:31)
[2025-05-25 23:11] VITALS: BP 113/75
[2025-05-26 06:00] VITALS: BMI 19.1
[2025-05-26 07:15] VITALS: BP 154/79
[2025-05-26 08:23] LABS: Hematocrit 30.2 % (37.0-47.0); Hemoglobin 9.9 g/dL (12.0-16.0); Mean Corp Hgb Conc. 32.8 g/dL (33.0-37.0); Mean Corpuscular Volume 95.3 fL (81.0-99.0); Platelet Count 202 10^3/uL (130-400); Red Cell Dist. Width 17.1 % (11.5-14.5)
[2025-05-26 08:46] LABS: Blood Urea Nitrogen 6 mg/dl (7-17); Calcium 8.7 mg/dl (8.4-10.2); Carbon Dioxide 27 mmol/L (22-30); Chloride 109 mmol/L (98-107); Estimated Creatinine Clearance 57 ml/min; Glucose 113 mg/dl (70-99); Potassium 3.6 mmol/L (3.5-5.1); Sodium 139 mmol/L (135-145); eGFR > 60.00
[2025-05-26] MEDS: NSS (PRESERVATIVE FREE) 10 ML IV (10:14)
[2025-05-26] MEDS: PROTONIX IV 40 MG IV (10:14)
[2025-05-26] MEDS: FLUSH (NSS) 1 FLUSH IV (10:14)
--- NOTE | 2025-05-26 11:35 | W.PN.GS2 ---
Addendum entered and electronically signed by Fer Kwon MD 05/26/25 12:51:
I saw and examined the patient.
The Plate Molder's note was reviewed and I agree with the note.
Comment: Feels 'not ready' for DC to facility, but unable to specify what is making her feel this way. Ambulating, marlen LRD, gas and stool in the appliance. Harrison in. Abd with approp ttp, incisions cdi. Cont current mgmt, dispo planning
Original Note:
Today's Communication / Plan
-
dispo planning
Assessment / Plan
-
79 yo female with a h/o rectal tumor now POD #10 Robotic low anterior resection (LAR) with loop ileostomy. Flexible sigmoidoscopy. Ureteroscopy for stent placements to identify ureters (stents now removed)
AFVSS
Tolerating dietary advancements with flatus/stool from appliance
Harrison for urinary retention, urology following with plan for TOV in one week
Labs remain stable
Plan:
Continue LRD
Pt/Ot/Cm following with rehab/snf planned upon discharge
Analgesics scheduled and prn
Stoma care/teaching
VTE ppx with lovenox/scds
anticipate ready for d/c tomorrow to SNF
Subjective Data
-
Date of Service: May 26, 2025
Pt seen and examined at bedside with Dr. Kwon. Denies n/v. Minimal discomfort. Tolerating meals.
Objective Data
-
Intake and Output
05/25/25 05/26/25 05/27/25
06:59 06:59 06:59
Intake Total 1680 / 1680 1720 / 1720
Output Total 995 / 995 3060 / 3060
Balance 685 / 685 -1340 / -1340
Intake:
Oral fluids 1080 / 1080 1720 / 1720
IV fluids (Total) 600 / 600
Output:
Liquid stool amount 445 / 445 860 / 860
Ileostomy 445 / 445 860 / 860
Urine, Harrison 550 / 550 2200 / 2200
Vital Signs
Temp Pulse Resp BP Pulse Ox
98.3 F 85 14 154/79 98
05/26/25 07:15 05/26/25 07:15 05/26/25 07:15 05/26/25 07:15 05/26/25 07:15
Lab Results
05/26/25 08:05
05/26/25 08:05
Calcium 8.7 mg/dl (8.4-10.2) 05/26/25 08:05
Magnesium 2.3 mg/dl (1.6-2.3) 05/17/25 04:20
Total Bilirubin 0.5 mg/dl (0.2-1.3) 05/07/25 10:58
AST 49 U/L (14-36) H 05/07/25 10:58
ALT 70 U/L (0-35) H 05/07/25 10:58
Alkaline Phosphatase 107 U/L (38-126) 05/07/25 10:58
Total Protein 7.0 g/dl (6.3-8.2) 05/07/25 10:58
Albumin 2.8 g/dl (3.5-5.0) L 05/18/25 05:44
Physical Exam
-
NAD
ABD soft, mild incisional tenderness, ND
Ileostomy to right abdomen productive of stool/flatus, latex free harrison as bridge
Patient has a harrison catheter: Yes
[2025-05-26 15:25] VITALS: BP 115/69
[2025-05-26] MEDS: LOVENOX 30 MG SC (18:39)
[2025-05-27 03:46] VITALS: BP 143/75
[2025-05-27 05:48] VITALS: BMI 18.4
[2025-05-27] MEDS: ARMOUR THYROID 30 MG PO (05:51)
[2025-05-27 07:10] VITALS: BP 133/77
--- NOTE | 2025-05-27 09:46 | W.PN.CRS1 ---
Today's Communication / Plan
-
Transfer when bed available.
Assessment/Plan
-
POD 11.
Progressing well.
Ok for transfer to [facility] with Arana intact.
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 Follow-up with oncology and CRS as an outpatient.
Subjective Data
Procedure
Robotic LAR with ileostomy 05/16/25
Subjective Data
Date of Service: May 27, 2025
She is toleratating a low residue diet and she has no pain.
Objective Data
-
Vital Signs
Temp Pulse Resp BP Pulse Ox
98.1 F 75 12 143/75 98
05/27/25 03:46 05/27/25 03:46 05/27/25 03:46 05/27/25 03:46 05/27/25 03:46
Intake & Output
05/26/25 05/27/25 05/28/25
06:59 06:59 06:59
Intake Total 1720 / 1720 1060 / 1060
Output Total 3060 / 3060 2300 / 2300
Balance -1340 / -1340 -1240 / -1240
Intake:
Oral fluids 1720 / 1720 1060 / 1060
Output:
Liquid stool amount 860 / 860 825 / 825
Ileostomy 860 / 860 825 / 825
Urine, Arana 2200 / 2200 1475 / 1475
Lab Results
05/26/25 08:05
05/26/25 08:05
Physical Exam
-
General: No Acute Distress
Abdomen: Soft, Non Distended, Non Tender and Other (ileostomy is pink and functioning)
Extremities: No Edema and No Calf Tenderness
Wound: No Signs of Infection
--- NOTE | 2025-05-27 12:01 | WOUNDNOTE ---
WON RN NOTE: Changed appliance today along with patient. Stoma pink and budded, peristomal skin intact. Bridge fell out when patient removing appliance, will notify GI team. Measured stoma and cut out wafer, otherwise patient able to close tail end,
apply wafer and snap on pouch with guidance. Patient still worried that she won't be able to do this herself and states, 'I don't know what I am going to do when I get home' Support and encouragement given, reminded that son Chepe has been given 2
teaching sessions to assist her as needed. Patient emptied pouch on own in bathroom reports nurse Olivier but needs constant encouragement to be more independent. Patient able to turn self to side, no change in sacrum or buttocks. Air cushion in use
on chair, reminded patient to turn self to sides when in bed. Additional supplies ordered from [facility], nurse Olivier made aware and will bring to when arrives. Will follow while here as needed.
[2025-05-27 13:29] VITALS: BP 128/75; PULSE 94
[2025-05-27 14:30] VITALS: BP 134/86; PULSE 107; O2SAT 96
[2025-05-27 15:10] VITALS: BP 118/73
--- NOTE | 2025-05-27 15:53 | CM ---
Addendum entered by Laury Eden 05/27/25 16:13:
Patient scheduled for 4:45 p.m. WC Van, number to call provided to son. Liaison at [facility] updated with transport time.
Original Note:
CM reviewed chart, patient seen bedside, discussed [facility] able to accept, son Alonso notified, will provide payment for WC Van transport. Spoke with Gary from [facility]- auth approved 05/27-05/31, next review 05/31, call for updates , auth
#[id number], updates to [facility] at [facility]. IMM verbally reviewed with patient, provided with copy, placed in chart. CM will continue to follow for all discharge planning needs.
Plan; [facility], WC Van Transport
Report: [phone]
--- NOTE | 2025-05-27 17:08 | PTCARENOTE ---
Patient belongings packed up three bags of belongings including phone, medication tech and cane went with patient. Report called to Cecilia Barron. Sheet Sewer was not aware she was getting an admission. I gave report and then the supervisor pumping station hung up on me-I did
not get a chance to ask her name.
== END 2025-05-27 17:00 | DRG 330 ==
LOC: 2 SOUTH 05:43
PROVIDERS: Physician Assistant; Registered Nurse; Specialist; ADMITTING PHYSICIAN Surgery; CONSULT PHYSICIAN Internal Medicine
PROC: 0D1B4Z4 Bypass Ileum to Cutaneous, Percutaneous Endoscopic Approach (ICD-10-PCS; 2025-05-16)
PROC: 0DBN4ZZ Excision of Sigmoid Colon, Percutaneous Endoscopic Approach (ICD-10-PCS; 2025-05-16)
PROC: 8E0W4CZ Robotic Assisted Procedure of Trunk Region, Percutaneous Endoscopic Approach (ICD-10-PCS; 2025-05-16)
PROC: 0DTP4ZZ Resection of Rectum, Percutaneous Endoscopic Approach (ICD-10-PCS; 2025-05-16)
PROC: 30233N1 Transfusion of Nonautologous Red Blood Cells into Peripheral Vein, Percutaneous Approach (ICD-10-PCS; 2025-05-20)
DX: C20 Malignant neoplasm of rectum (principal); D62 Acute posthemorrhagic anemia; K56.7 Ileus, unspecified; N17.9 Acute kidney failure, unspecified; Z68.1 Body mass index [BMI] 19.9 or less, adult; E87.20 Acidosis, unspecified; K91.89 Other postprocedural complications and disorders of digestive system; R33.8 Other retention of urine; E87.6 Hypokalemia; E16.2 Hypoglycemia, unspecified; E83.52 Hypercalcemia; Y83.8 Other surgical procedures as the cause of abnormal reaction of the patient, or of later complication, without mention of misadventure at the time of the procedure; N81.10 Cystocele, unspecified; E03.9 Hypothyroidism, unspecified; R63.6 Underweight; K21.9 Gastro-esophageal reflux disease without esophagitis; F41.9 Anxiety disorder, unspecified; F32.A Depression, unspecified; E78.5 Hyperlipidemia, unspecified; M81.0 Age-related osteoporosis without current pathological fracture; K90.0 Celiac disease
CPT/HCPCS: 36415; 71045; 74019; 74022; 76770; 80048; 80053; 81003; 81015; 82040; 82550; 82570; 82962; 83036; 83735; 84300; 85014; 85025; 85027; 85610; 85730; 86850; 86900; 86901; 86920; 88304; 88309; 93005; 97116; 97163; 97167; 97530; 97535; A4300; J1335; J1610; P9016

== ENCOUNTER → 2025-05-30 09:29 | Outpatient (REF) | payer OTHER, SELFPAY ==
[2025-05-30 12:09] LABS: Hematocrit 28.1 % (37.0-47.0); Hemoglobin 9.0 g/dL (12.0-16.0); Mean Corp Hgb Conc. 32.0 g/dL (33.0-37.0); Mean Corpuscular Volume 96.9 fL (81.0-99.0); Nucleated Red Blood Cells % 0 %; Platelet Count 225 10^3/uL (130-400); Red Cell Dist. Width 17.0 % (11.5-14.5)
[2025-05-30 12:42] LABS: Blood Urea Nitrogen 12 mg/dl (7-17); Calcium 9.0 mg/dl (8.4-10.2); Carbon Dioxide 22 mmol/L (22-30); Chloride 112 mmol/L (98-107); Glucose 90 mg/dl (70-99); Potassium 4.4 mmol/L (3.5-5.1); Sodium 138 mmol/L (135-145); eGFR > 60.00
== END ==
LOC: OLABP 09:29
PROVIDERS: ATTENDING PHYSICIAN Family Medicine
DX: Z48.815 Encounter for surgical aftercare following surgery on the digestive system (principal); K91.89 Other postprocedural complications and disorders of digestive system; C20 Malignant neoplasm of rectum; R63.6 Underweight; R33.8 Other retention of urine; E83.52 Hypercalcemia; E87.20 Acidosis, unspecified; I10 Essential (primary) hypertension; Z93.2 Ileostomy status; Z46.6 Encounter for fitting and adjustment of urinary device
CPT/HCPCS: 36415; 80048; 85025

== ENCOUNTER → 2025-06-06 11:24 | Outpatient (REF) | payer OTHER, SELFPAY ==
[2025-06-06 11:50] LABS: Hematocrit 29.5 % (37.0-47.0); Hemoglobin 9.1 g/dL (12.0-16.0); Mean Corp Hgb Conc. 30.8 g/dL (33.0-37.0); Mean Corpuscular Volume 98.7 fL (81.0-99.0); Platelet Count 222 10^3/uL (130-400); Red Cell Dist. Width 17.2 % (11.5-14.5)
== END ==
LOC: OLABP 11:24
PROVIDERS: ATTENDING PHYSICIAN Family Medicine
DX: C20 Malignant neoplasm of rectum (principal); R63.6 Underweight; K91.89 Other postprocedural complications and disorders of digestive system; E83.52 Hypercalcemia; E87.20 Acidosis, unspecified; I10 Essential (primary) hypertension; Z93.2 Ileostomy status; Z46.6 Encounter for fitting and adjustment of urinary device
CPT/HCPCS: 36415; 85027

== ENCOUNTER 2025-06-15 14:59 | Emergency (ER) | payer OTHER, SELFPAY ==
[2025-06-15 15:02] VITALS: BP 154/81
--- NOTE | 2025-06-15 15:38 | EDRN ---
Zeynep Galvin PA in to see pt at this time.
--- NOTE | 2025-06-15 15:50 | EDRN ---
Pt has rung the call light 3 times for her family to come back. This RN after finishing triage called out for family to come back but no family came back. This RN went out to call family back as pt insisting family is here. No family but staff said
family left to get something to eat. Pt was updated on where her family is at this time.
[2025-06-15 16:00] VITALS: BP 150/76
--- NOTE | 2025-06-15 16:43 | EDRN ---
Pt's family went to waiting area down [address] and now have gone as pt told them she was going to nap. Pt wants her son called to come and visit her after her radiology studies.
--- NOTE | 2025-06-15 16:47 | EDRN ---
Pt's son called and message left for him to call back at this time.
--- NOTE | 2025-06-15 16:55 | EDRN ---
Pt repositioned at her request w/ extra sheets from radiology removed and adjusted her bed for comfort.
--- NOTE | 2025-06-15 16:57 | EDRN ---
Pt's son called back and this RN spoke to her son. He asked if pt is done and ready to return to [facility]. He was informed that pt still needs xrays read but pt wanted him to come to be with her. Son spoke w/ pt and stopped talking w/ son saying son
was 'yelling' at her. Pt appearing sad and upset at this time.
[2025-06-15 17:00] VITALS: BP 154/75
--- NOTE | 2025-06-15 17:04 | ED.GENMED ---
History of Present Illness
General
Chief Complaint: Fall
Time Seen by Provider: 06/15/25 15:25
History of Present Illness
History of Present Illness:
80-year-old female with history of colorectal cancer status post colectomy presents to the emergency department for evaluation after a fall. She states that she was not wearing her shoe correctly and she fell to the ground striking her head and
right hip on the ground. No reported LOC. Currently denies any headache, vision changes, neck pain, or chest pain. She is not on any anticoagulants.
Review of Systems
Review of Systems
Allergies reviewed?: Yes
All Other Systems: ROS reviewed and negative except as documented in HPI and ROS
Phy Exam
Physical Exam
Physical Exam:
GEN: Well appearing, NAD, WDWN
HEENT: Large ecchymosis to the right temporal skull with no cephalohematoma, oral mucosa moist, no scleral icterus, no nasal congestion
Cardiac: Regular rate
Lung: No respiratory distress, no tachypnea
MSK: No gross deformity or injuries, no midline cervical, thoracic, or lumbar spinal tenderness. Bony tenderness to the right greater trochanter with no obvious deformity or shortening of the lower extremity
Skin: Good color, no pallor or jaundice, no rashes
Neuro: AO x3; CN II-XII grossly intact. BUE strength 5/5 in all arguello, sensation intact and symmetric. BLE strength 5/5 in all arguello, sensation intact and symmetric
Psych: Calm, cooperative
Course
Orders/Labs/Results
Orders:
Orders
06/15/25 15:37
CT Head W/o Iv Contrast Urgent
Comment:
Reason For Exam: fall head injury
CR Hip - RT w/wo Pel 2-3 Vw* Urgent
Comment:
Reason For Exam: fall
Include a pelvis x-ray?: Yes
Vital Signs
Initial and Last Documented VS:
Initial Vital Signs
Temp Pulse Resp BP Pulse Ox
99.7 F 86 16 154/81 99
06/15/25 15:02 06/15/25 15:02 06/15/25 15:02 06/15/25 15:02 06/15/25 15:02
Last Documented Vital Signs
Temp Pulse Resp BP Pulse Ox
99.7 F 92 16 154/75 97
06/15/25 15:02 06/15/25 17:00 06/15/25 17:00 06/15/25 17:00 06/15/25 17:05
MDM/Problems Addressed
MDM/Problems Addressed:
Imaging shows no evidence for acute hemorrhage intracranially or injury to the right hip. Discharged back to her rehab facility in stable condition
*Pulse Oximetry
SaO2: 97
Oxygen Mode of Delivery: Room air
Patient hypoxic: no
*Critical Care Note
Total Time (30-74mins, 75-104mins- exclusive of procedures): Not Applicable
ED Attending Note
-
Portions of this chart may have been created with voice recognition software.� Occasional wrong word or��sound alike� substitutions may have occurred due to the inherent limitations of voice recognition software.
Discharge Plan
Departure
Patient Disposition: Home (Routine Discharge)
Date of Disposition: 06/15/25
Time of Disposition: 17:04
Patient with high blood pressure during this ER visit?: No
Discharge Problem:
Fall, Closed head injury
Instructions: Head Injury in Adults (DC)
Prescriptions:
No Action
thyroid (pork) [[place] Thyroid] 30 mg Tablet
30 mg PO DAILY
acetaminophen-codeine [acetaminophen-codeine] 300-30 mg tablet
1 tab PO Q4HPRN PRN (Reason: moderate to severe pain) Qty: 15 0RF
tramadol 50 mg Tablet
50 mg PO Q6H PRN (Reason: severe pain)
pantoprazole 20 mg Tablet,Delayed Release (Dr/Ec)
20 mg PO HS
magnesium hydroxide [Milk of Magnesia] 400 mg/5 mL Suspension
30 ml PO DAILY PRN (Reason: if no bm x 3 days)
Rx Instructions:
give on day 4 of no bm
bisacodyl [Dulcolax (bisacodyl)] 10 mg Suppository
10 mg [place] DAILYPRN PRN (Reason: if MOM ineffective)
Rx Instructions:
give on day 5 of no BM
Fleet Enema 19-7 gram/118 mL Enema
197 ml W[place] ONCE
Rx Instructions:
give on day 6 of no BM
naloxone [Narcan] 4 mg/actuation [place],Non-Aerosol
4 mg INTRANASAL Q3M PRN (Reason: opioid suspected overdose)
Rx Instructions:
alternate nostrils
tramadol 25 mg Tablet
25 mg PO Q6H PRN (Reason: mild pain)
acetaminophen 325 mg tablet
650 mg PO Q4HPRN PRN (Reason: fever >100)
Referrals:
Ximena Montes DO [Family Provider, General]
Interventions
Interventions:
*Risk Screen - Suicide Last Done: 06/15/25 15:09
*General Assessment Last Done: 06/15/25 15:09
*Neglect/Abuse Screening Last Done: 06/15/25 15:09
*ED- Fall Risk Assessment Last Done: 06/15/25 15:09
*ED COVID-19 Vaccine History Last Done: 06/15/25 15:09
*Nursing Disposition Last Done: 06/15/25 17:39
ED-Musculoskeletal Assessment Last Done: 06/15/25 15:20
ED- Neurological Assessment Last Done: 06/15/25 15:20
ED-Skin Assessment Last Done: 06/15/25 15:20
Discharge Date and Time
Discharge Date/Time: 06/15/25 17:40
Print Language: ITALIAN
--- NOTE | 2025-06-15 17:10 | EDRN ---
Zeynep Galvin PA in room w /pt at this time. Pt to be discharged. Will speak to pt about her ride back to [facility].
--- NOTE | 2025-06-15 17:11 | EDRN ---
Zeynep CHRISTIE asked if pt wanted anyone called to take her back to [facility]. Pt said no. informed to get pt an ambulance back to [facility] at this time.
--- NOTE | 2025-06-15 17:13 | EDRN ---
Pt was asked by this RN now if she wished for her son to be called. Pt waved her hand no. This RN informed pt that an ambulance will be set up for her ride back to [facility].
--- NOTE | 2025-06-15 17:18 | EDRN ---
Pt asked about [facility] transport if they had been called. Pt informed no [facility] transport available on weekends and an ambulance will be taking her. Pt then said that 'I peed myself.'
--- NOTE | 2025-06-15 17:20 | EDRN ---
Pt's son just arrived at this time and is in room w/ pt.
--- NOTE | 2025-06-15 17:43 | EDRN ---
Attempted to call report to [facility] at this time. No answer. Will attempt again at a later time.
--- NOTE | 2025-06-15 18:00 | EDRN ---
Second attempt to call report to Cecilia Barron at this time.
--- NOTE | 2025-06-15 18:06 | EDRN ---
Second attempt at report to Cecilia Barron, no one answered.
--- NOTE | 2025-06-15 18:59 | EDRN ---
On the third attempt to call report at 18:40 a transfer to pt's floor failed so a 4th attempt made and this RN gave report to Felicia Monsalve RN on 4th floor rehab at [facility] and stressed head injury precautions and told her CT of head and Xray of R
hip negative w/ THR hardware in place.
== END 2025-06-15 17:40 ==
LOC: EMR 14:59
PROVIDERS: EMERGENCY PHYSICIAN Emergency Medicine; FAMILY PHYSICIAN Family Medicine
DX: S09.90XA Unspecified injury of head, initial encounter (principal); M25.551 Pain in right hip; W18.39XA Other fall on same level, initial encounter; Z85.048 Personal history of other malignant neoplasm of rectum, rectosigmoid junction, and anus; Z90.49 Acquired absence of other specified parts of digestive tract
CPT/HCPCS: 99284; 70450; 73502

== ENCOUNTER → 2025-08-16 08:58 | Outpatient (REF) | payer OTHER, SELFPAY | LOC: RAD 08:58 | PROVIDERS: ATTENDING PHYSICIAN Surgery; FAMILY PHYSICIAN Family Medicine | DX: Z01.818 Encounter for other preprocedural examination (principal) | CPT/HCPCS: 74270 ==

== ENCOUNTER 2025-08-22 10:31 | Inpatient (IN) | payer OTHER, SELFPAY ==
[2025-08-09 11:13] LABS: Hematocrit 39.9 % (37.0-47.0); Hemoglobin 13.0 g/dL (12.0-16.0); Mean Corp Hgb Conc. 32.6 g/dL (33.0-37.0); Mean Corpuscular Volume 92.4 fL (81.0-99.0); Platelet Count 233 10^3/uL (130-400); Red Cell Dist. Width 14.7 % (11.5-14.5)
[2025-08-09 11:20] LABS: INR 0.98; PT 13.3 Sec (11.4-14.6)
[2025-08-09 11:21] LABS: APTT 28.4 Sec (23.4-35.0)
[2025-08-09 13:45] LABS: Glycohemoglobin (HgbA1c) 5.2 % (4.0-5.6)
[2025-08-12 13:36] VITALS: BMI 17.8
[2025-08-13 15:35] LABS: ALT (SGPT) 25 U/L (0-35); AST (SGOT) 21 U/L (14-36); Albumin 4.2 g/dl (3.5-5.0); Alkaline Phosphatase 104 U/L (38-126); Blood Urea Nitrogen 18 mg/dl (7-17); Calcium 9.7 mg/dl (8.4-10.2); Carbon Dioxide 26 mmol/L (22-30); Chloride 107 mmol/L (98-107); Estimated Creatinine Clearance 36 ml/min; Glucose 94 mg/dl (70-99); Potassium 4.6 mmol/L (3.5-5.1); Sodium 140 mmol/L (135-145); Total Protein 7.4 g/dl (6.3-8.2); eGFR > 60.00
[2025-08-22] VITALS (13 sets, daily range): BP systolic 81–141; BP diastolic 56–83; BMI 17.8
[2025-08-22] MEDS: CELEBREX 200 MG PO (11:23)
[2025-08-22] MEDS: NORMOSOL-R/PLASMALYTE-A 1000 IV ×2 (11:23→16:04)
[2025-08-22] MEDS: TYLENOL 1000 MG PO (11:25)
[2025-08-22] MEDS: NEURONTIN 600 MG PO (11:25)
[2025-08-22] MEDS: HEPARIN 5000 UNITS SC (11:25)
[2025-08-22] MEDS: RELISTOR 12 MG SC (11:26)
--- NOTE | 2025-08-22 13:24 | W.IMMPOSTOP ---
Addendum entered and electronically signed by Mandeep Severino MD 08/22/25 16:16:
On note, pelvic anastomosis at 6 cm on NEFTALY & normal appearance on flex sig.
Original Note:
Surgical Immed Post Op Note
-
Primary Surgeon: Brian Severino MD
Assisting Surgeon: DAVID Ponce
Pre-op Diagnosis: 1) history of rectal cancer 2) loop ileostomy
Post-op Diagnosis: same
Procedure Performed: 1) flexible sigmoidoscopy 2) takedown loop ileostomy with partial small bowel resection
Anesthesia Type: general plus local
Specimen / Cultures: ileostomy
Estimated Blood Loss: 10 cc
Complications: no immediate
Operative Findings: none
Arana in bladder.
Will send to med surg.
[2025-08-22] MEDS: ZOFRAN 4 MG IV (14:12)
[2025-08-22 14:13] LABS: Hematocrit 34.9 % (37.0-47.0); Hemoglobin 11.4 g/dL (12.0-16.0); Mean Corp Hgb Conc. 32.7 g/dL (33.0-37.0); Mean Corpuscular Volume 89.0 fL (81.0-99.0); Nucleated Red Blood Cells % 0 %; Platelet Count 265 10^3/uL (130-400); Red Cell Dist. Width 14.5 % (11.5-14.5)
[2025-08-22] MEDS: COMPAZINE 5 MG IV (14:59)
[2025-08-22 15:26] LABS: Blood Urea Nitrogen 15 mg/dl (7-17); Calcium 8.7 mg/dl (8.4-10.2); Carbon Dioxide 22 mmol/L (22-30); Chloride 108 mmol/L (98-107); Estimated Creatinine Clearance 46 ml/min; Glucose 146 mg/dl (70-99); Magnesium 2.0 mg/dl (1.6-2.3); Potassium 3.6 mmol/L (3.5-5.1); Sodium 137 mmol/L (135-145); eGFR > 60.00
[2025-08-22] MEDS: TORADOL 10 MG IV (16:04)
[2025-08-22] MEDS: TORADOL IV (20:01)
[2025-08-22] MEDS: TYLENOL PO ×2 (20:01→23:10)
[2025-08-23] VITALS (7 sets, daily range): BP systolic 91–119; BP diastolic 55–68; PULSE 61–85; O2SAT 99; BMI 18.6
[2025-08-23] MEDS: NORMOSOL-R/PLASMALYTE-A 1000 IV (01:48)
[2025-08-23] MEDS: TORADOL IV ×2 (01:53→07:26)
[2025-08-23] MEDS: TYLENOL PO ×2 (03:01→07:26)
[2025-08-23] MEDS: ARMOUR THYROID 30 MG PO (04:31)
[2025-08-23] MEDS: TYLENOL 650 MG PO ×4 (04:36→20:31)
[2025-08-23] MEDS: PROTONIX 40 MG PO (07:27)
[2025-08-23] MEDS: RELISTOR 12 MG SC (07:27)
--- NOTE | 2025-08-23 08:23 | W.PN.CRS1 ---
Addendum entered and electronically signed by Mandeep Severino MD 08/24/25 09:00:
Of note, patient is underweight.
Original Note:
Today's Communication / Plan
-
Clears
OOB.
Lovenox.
D/c harrison.
Assessment/Plan
-
POD 1.
1. vitals ok; labs pending.
2. trialing clears.
3. OOB.
4. d/c harrison.
5. continue IVFs.
6. Lovenox.
Subjective Data
Procedure
loop ileostomy takedown 08/22/25
Subjective Data
Date of Service: August 23, 2025
No nausea.
Hungry.
Some incisional discomfort.
Objective Data
-
Vital Signs
Temp Pulse Resp BP Pulse Ox
97.9 F 61 16 119/55 97
08/23/25 07:05 08/23/25 07:05 08/23/25 07:05 08/23/25 07:05 08/23/25 07:05
Intake & Output
08/22/25 08/23/25 08/24/25
06:59 06:59 06:59
Intake Total 440 / 440
Output Total 375 / 375 350 / 350
Balance 65 / 65 -350 / -350
Intake:
Oral fluids 240 / 240
IV fluids (Total) 200 / 200
Normosol 200 / 200
Output:
Urine, [place] 375 / 375 350 / 350
Physical Exam
-
General: No Acute Distress
Chest: Clear
Cardiovascular: Regular Rate & Rhythm
Abdomen: Non Distended and Tender (mild incisional)
Extremities: No Calf Tenderness
Incision: Clear, Dry, Intact (dressings) and No Skin Erythema
[2025-08-23 09:26] LABS: Hematocrit 31.6 % (37.0-47.0); Hemoglobin 10.3 g/dL (12.0-16.0); Mean Corp Hgb Conc. 32.6 g/dL (33.0-37.0); Mean Corpuscular Volume 89.3 fL (81.0-99.0); Nucleated Red Blood Cells % 0 %; Platelet Count 195 10^3/uL (130-400); Red Cell Dist. Width 14.3 % (11.5-14.5)
[2025-08-23 09:45] LABS: Blood Urea Nitrogen 16 mg/dl (7-17); Calcium 8.5 mg/dl (8.4-10.2); Carbon Dioxide 27 mmol/L (22-30); Chloride 107 mmol/L (98-107); Estimated Creatinine Clearance 42 ml/min; Glucose 88 mg/dl (70-99); Magnesium 2.2 mg/dl (1.6-2.3); Potassium 4.2 mmol/L (3.5-5.1); Sodium 138 mmol/L (135-145); eGFR > 60.00
--- NOTE | 2025-08-23 10:09 | CM ---
CM following re: discharge planning.
Reviewed pt's chart, met with pt.
Pt is an 80 year old female, admitted with primary dx of Loop ileostomy. POD#1 Flexible sigmoidoscopy. Takedown of loop ileostomy with partial small bowel resection.
Pt reports she lives alone in an apartment, no steps to enter, has 2 supportive children. Pt reports she ambulates with a walker, has a cane, has a private caregiver one hour per week to help with shower and light cleaning. Pt reports she had VN in
the past, does not remember the name of VN vendor and pt stated her daughter knows.
PT and POT will evaluate the pt to determine a level of care at discharge.
PCP: Cole Hood
Pharmacy: [facility].
D/C plan: home with most likely VN services and family support.
CM will follow with discharge plan updates as hospitalization progresses
[2025-08-23] MEDS: TORADOL 10 MG IV ×2 (10:59→20:26)
--- NOTE | 2025-08-23 11:28 | PN.CDI ---
CDI
- -
CDI:
Physician Documentation Request
Admit Date: 08/22/25 10:31
Dear Colorectal,
Please review the following and provide your response in the progress notes.
Clinical Indicators:
Height: 5'4
Weight: 103lbs
BMI: 17.8
Other Clinical Notes:
If possible, please provide an associated diagnosis related to the abnormal BMI, such as:
Underweight
BMI is not significant
Other (please specify)
Use of terms such as suspected, likely, concern for, or probable (associated with a specific diagnosis that is being evaluated, monitored, or treated as if it exists) are acceptable and can be coded in the inpatient setting, when documented at the
time of discharge.
Thank you,
Artie Blum RN
CDI Specialist
Please use your independent medical judgment in providing your response.
[2025-08-23] MEDS: NORMOSOL-R/PLASMALYTE-A IV (16:32)
[2025-08-23] MEDS: LOVENOX 40 MG SC (16:34)
[2025-08-24] MEDS: TYLENOL PO ×5 (01:00→23:56)
[2025-08-24 01:32] VITALS: BMI 18.6
[2025-08-24] MEDS: TORADOL IV ×3 (01:42→19:35)
[2025-08-24] MEDS: ARMOUR THYROID 30 MG PO (05:26)
[2025-08-24 06:00] VITALS: BMI 18.7
[2025-08-24 07:30] VITALS: BP 125/78
[2025-08-24] MEDS: RELISTOR 12 MG SC (09:24)
[2025-08-24] MEDS: TYLENOL 650 MG PO ×2 (09:25→15:16)
[2025-08-24] MEDS: PROTONIX 40 MG PO (09:25)
[2025-08-24] MEDS: TORADOL 10 MG IV (09:27)
--- NOTE | 2025-08-24 14:07 | W.PN.CRS1 ---
Today's Communication / Plan
-
advance diet
Assessment/Plan
-
80 yo female with h/o rectal ca presenting for loop ileostomy takedown POD #2 1) flexible sigmoidoscopy 2) takedown loop ileostomy with partial small bowel resection
AFVSS
Mild acute anemia secondary to expected blood loss and hemodilution. No active bleeding noted
Renal function normal
Packing removed at bedside
Plan:
Advance to [facility]
PT/OT eval appreciated, OOB/ambulate
Local wound care with dry gauze dressings
Tylenol and Toradol scheduled with prn narcotics
Methylnaltrexone x3 doses
c/w home thyroid medications
Lovenox for VTE ppx
Tentative d/c tomorrow pending diet tolerance/pt progress
Subjective Data
Procedure
loop ileostomy takedown 08/22/25
Subjective Data
Date of Service: August 24, 2025
Pt seen and examined at bedside with Dr. Severino. Denies n/v. Tolerating diet. Passing flatus. Minimal discomfort.
Objective Data
-
Vital Signs
Temp Pulse Resp BP Pulse Ox
98.0 F 66 16 125/78 98
08/24/25 07:30 08/24/25 07:30 08/24/25 07:30 08/24/25 07:30 08/24/25 07:30
Intake & Output
08/23/25 08/24/25 08/25/25
06:59 06:59 06:59
Intake Total 440 / 440 1120 / 1120
Output Total 375 / 375 875 / 875
Balance 65 / 65 245 / 245
Intake:
Oral fluids 240 / 240 960 / 960
IV fluids (Total) 200 / 200 160 / 160
Normosol 200 / 200
Output:
Urine, Arana 375 / 375 350 / 350
Urine, Voided 525 / 525
Lab Results
08/23/25 08:15
08/23/25 08:15
Physical Exam
-
General: No Acute Distress
Chest: Clear
Cardiovascular: Regular Rate & Rhythm
Abdomen: Non Distended and Tender (mild incisional)
Extremities: No Calf Tenderness
Wound: Dressing Changed and Other (packing removed, prior stoma site clean and without erythema)
Incision: No Skin Erythema
[2025-08-24] MEDS: LOVENOX 40 MG SC (15:17)
[2025-08-24 15:22] VITALS: BP 126/68
[2025-08-24 23:24] VITALS: BP 133/79
[2025-08-24] MEDS: MELATONIN 5 MG PO (23:40)
[2025-08-25] MEDS: TORADOL IV ×2 (03:02→08:46)
[2025-08-25] MEDS: TYLENOL PO ×5 (03:03→23:45)
[2025-08-25 06:00] VITALS: BMI 18.6
[2025-08-25] MEDS: ARMOUR THYROID 30 MG PO (06:10)
[2025-08-25 07:15] VITALS: BP 145/70
[2025-08-25 07:19] LABS: Blood Urea Nitrogen 21 mg/dl (7-17); Calcium 8.7 mg/dl (8.4-10.2); Carbon Dioxide 25 mmol/L (22-30); Chloride 109 mmol/L (98-107); Estimated Creatinine Clearance 48 ml/min; Glucose 91 mg/dl (70-99); Potassium 4.4 mmol/L (3.5-5.1); Sodium 139 mmol/L (135-145); eGFR > 60.00
[2025-08-25 07:55] LABS: Hematocrit 33.6 % (37.0-47.0); Hemoglobin 10.6 g/dL (12.0-16.0); Mean Corp Hgb Conc. 31.5 g/dL (33.0-37.0); Mean Corpuscular Volume 94.6 fL (81.0-99.0); Platelet Count 189 10^3/uL (130-400); Red Cell Dist. Width 14.6 % (11.5-14.5)
[2025-08-25] MEDS: TYLENOL 650 MG PO (08:47)
[2025-08-25] MEDS: RELISTOR SC ×2 (08:47→08:51)
[2025-08-25] MEDS: PROTONIX 40 MG PO (08:47)
--- NOTE | 2025-08-25 11:31 | W.PN.CRS1 ---
Today's Communication / Plan
-
trend h/h
LRD
Assessment/Plan
-
80 yo female with h/o rectal ca presenting for loop ileostomy takedown POD #3 1) flexible sigmoidoscopy 2) takedown loop ileostomy with partial small bowel resection
AFVSS
Mild acute anemia secondary to expected blood losses and hemodilution. Some blood noted in stools overnight, not unexpected.
Renal function normal
Plan:
Continue LRD
PT/OT eval appreciated, OOB/ambulate
Local wound care with dry gauze dressings
Tylenol scheduled with prn narcotics. Toradol held given drop in h/h
Repeat h/h later today, CBC in am
c/w home thyroid medications
Lovenox held given bleeding, utilize SCD's for VTE ppx
Tentative d/c tomorrow pending diet tolerance/pt progress
Subjective Data
Procedure
loop ileostomy takedown 08/22/25
Subjective Data
Date of Service: August 25, 2025
Pt seen and examined at bedside with Dr. Severino. Denies n/v. Tolerating diet. Passing multiple loose stools. Blood noted on tissue with wiping. Incontinent episodes overnight. Minimal discomfort.
Objective Data
-
Vital Signs
Temp Pulse Resp BP Pulse Ox
98.0 F 64 16 145/70 98
08/25/25 07:15 08/25/25 07:15 08/25/25 07:15 08/25/25 07:15 08/25/25 07:15
Intake & Output
08/24/25 08/25/25 08/26/25
06:59 06:59 06:59
Intake Total 1120 / 1120 1020 / 1020
Output Total 875 / 875
Balance 245 / 245 1020 / 1020
Intake:
Oral fluids 960 / 960 1020 / 1020
IV fluids (Total) 160 / 160
Output:
Urine, Arana 350 / 350
Urine, Voided 525 / 525
Other:
Number of approximated SMALL 3 1
amounts of urine
Number of approximated MODERATE 1
amounts of urine
Number of unmeasured liquid
stools
Rectum 4
Lab Results
08/25/25 05:41
Physical Exam
-
General: No Acute Distress
Chest: Clear
Abdomen: Soft, Non Distended and Tender (mild incisional)
Extremities: No Calf Tenderness
Wound: Other (prior stoma site clean and without erythema)
Incision: No Skin Erythema
[2025-08-25 13:14] LABS: Hematocrit 35.9 % (37.0-47.0); Hemoglobin 11.1 g/dL (12.0-16.0)
[2025-08-25 15:23] VITALS: BP 150/85
[2025-08-25] MEDS: ZOFRAN 4 MG IV (15:28)
[2025-08-25 23:10] VITALS: BP 143/81
[2025-08-26] MEDS: TYLENOL PO ×3 (03:54→12:09)
[2025-08-26 05:06] VITALS: BMI 18.3
[2025-08-26] MEDS: ARMOUR THYROID 30 MG PO (06:20)
[2025-08-26 06:29] LABS: Hematocrit 33.5 % (37.0-47.0); Hemoglobin 10.9 g/dL (12.0-16.0); Mean Corp Hgb Conc. 32.5 g/dL (33.0-37.0); Mean Corpuscular Volume 93.6 fL (81.0-99.0); Platelet Count 199 10^3/uL (130-400); Red Cell Dist. Width 14.8 % (11.5-14.5)
[2025-08-26 06:49] LABS: Blood Urea Nitrogen 16 mg/dl (7-17); Calcium 8.9 mg/dl (8.4-10.2); Carbon Dioxide 26 mmol/L (22-30); Chloride 109 mmol/L (98-107); Estimated Creatinine Clearance 47 ml/min; Glucose 103 mg/dl (70-99); Potassium 4.2 mmol/L (3.5-5.1); Sodium 141 mmol/L (135-145); eGFR > 60.00
[2025-08-26 07:15] VITALS: BP 158/88
[2025-08-26] MEDS: PROTONIX 40 MG PO (07:54)
--- NOTE | 2025-08-26 10:28 | W.PN.CRS1 ---
Today's Communication / Plan
-
Discharge.
Assessment/Plan
-
POD 4.
1. vitals and labs fine. Hg stable at 10.9. No evidence for active bleeding.
2. toleraing diet with bowel function.
3. discharge.
Subjective Data
Procedure
loop ileostomy takedown 08/22/25
Subjective Data
Date of Service: August 26, 2025
BMs less frequent.
Tolerating diet.
Pain control good.
Objective Data
-
Vital Signs
Temp Pulse Resp BP Pulse Ox
98.1 F 78 18 158/88 95
08/26/25 07:15 08/26/25 07:15 08/26/25 07:15 08/26/25 07:15 08/26/25 08:00
Intake & Output
08/25/25 08/26/25 08/27/25
06:59 06:59 06:59
Intake Total 1020 / 1020 720 / 720
Balance 1020 / 1020 720 / 720
Intake:
Oral fluids 1020 / 1020 720 / 720
Other:
Number of approximated SMALL 3 1
amounts of urine
Number of approximated MODERATE 1 1
amounts of urine
Number of unmeasured liquid
stools
Rectum 4
Lab Results
08/26/25 05:47
08/26/25 05:47
Physical Exam
-
General: No Acute Distress
Chest: Clear
Cardiovascular: Regular Rate & Rhythm
Abdomen: Distended (mild) and Tender (mild incisional)
Wound: No Signs of Infection, Dressing Changed and No Skin Erythema
--- NOTE | 2025-08-26 12:08 | CM ---
CM following re: discharge planning.
Reviewed pt's chart, met with pt.
Discharge order noted. Pt is aware, expressed her agreement with discharge and she stated her son will transport home at 2:30 p.m.
IMM reviewed, placed on cart, pt has a copy.
No after care VN needs identified.
D/C plan: home no needs. Son to transport.
--- NOTE | 2025-08-26 13:20 | W.DS.TRANS ---
Addendum entered and electronically signed by ANGELITO Fierro 08/26/25 13:22:
dictated #[id number]
Original Note:
DC Summary - Supervisor Grounds
-
Discharge Instructions:
Sleep Apnea Risk Low
Discharge Diagnosis/Procedures Takedown of loop ileostomy
Diet Low Fiber
Activity No strenuous activity
Additional Activity Do not lift over 10lbs (gallon of milk)
Bathing Restrictions OK to Shower
Other Services VN
Wound Care Cover your previous stoma site with a dry gauze
dressing and change it daily and as needed if
soiled. Ok to leave dressing off once wound has
closed and drainage no longer noted. Ok to
remove dressing for showers. Do not soak in tubs
or pools until the wound is fully healed.
Instructions:
Stand-Alone Forms:
Changes to Home Medications: No
Discharge Medications:
DC Medications w/original date entered in [facility]
thyroid (pork) 30 mg tablet ([place] Thyroid) 30 mg PO DAILY Thyroid 12/27/24
acetaminophen 325 mg tablet 650 mg (2 x 325 mg) PO Q4HPRN PRN mild pain #1 tab 08/25/25
tramadol 50 mg tablet 25 - 50 mg (0.5 - 1 x 50 mg) PO Q6HPRN PRN severe pain/breakthrough pain #15 tabs 08/26/25
Home Medication Changes
Pending Results: No
[2025-08-26 15:10] VITALS: BP 145/80
== END 2025-08-26 16:10 | disposition home or self-care (01) | DRG 330 ==
LOC: 2 SOUTH 10:31
PROVIDERS: Registered Nurse; ADMITTING PHYSICIAN Surgery; FAMILY PHYSICIAN Family Medicine
PROC: 0DBB0ZZ Excision of Ileum, Open Approach (ICD-10-PCS; 2025-08-22)
DX: Z43.2 Encounter for attention to ileostomy (principal); D62 Acute posthemorrhagic anemia; Z68.1 Body mass index [BMI] 19.9 or less, adult; Z85.048 Personal history of other malignant neoplasm of rectum, rectosigmoid junction, and anus; R63.6 Underweight
CPT/HCPCS: 36415; 80048; 80053; 83036; 83735; 85014; 85018; 85025; 85027; 85610; 85730; 86850; 86900; 86901; 88304; 93005; 97166; 97530; J1335

== ENCOUNTER → 2025-09-18 10:32 | Outpatient (REF) | payer OTHER, SELFPAY | LOC: RAD 10:32 | PROVIDERS: ATTENDING PHYSICIAN Internal Medicine Hematology & Oncology; FAMILY PHYSICIAN Family Medicine | DX: C20 Malignant neoplasm of rectum (principal); D50.9 Iron deficiency anemia, unspecified; E86.0 Dehydration | CPT/HCPCS: 71260; 74177; Q9967 ==